=== PATIENT | male | born 1995 | race Caucasian/White ===

== ENCOUNTER → 2018-02-15 14:31 | Outpatient (CLI) | payer OTHER, SELFPAY ==
[2018-02-15 16:27] LABS: Microalbumin,Random Urine 16.9 mg/L (NO RANGE EST.); Microalbumin:Creatinine Ratio 7.4 mg/g CRE (<30 mg/g CRE); Protein:Creat Ratio 66 mg/g CRE (0-200)
[2018-02-15 16:44] LABS: Absolute Lymphocyte Count 1.97 X10^3/ul (0.83-4.51); Absolute Neutrophil Count 4.1 X10^3/uL (2.0-7.7); Albumin, Serum 4.1 g/dL (3.2-5.0); BUN 10 mg/dL (7-18); BUN/Creat Ratio 9.3 RATIO (10-20); Basophil# 0.02 X10^3/uL; Basophil% 0.3 % (0-1); Calcium,Total 9.3 mg/dL (8.5-10.1); Chloride 105 mmol/L (98-107); Creatinine, Serum 1.07 mg/dL (0.70-1.30); EST Glomerular Filtration Rate 89 mL/min (>60); Eosinophil# 0.04 X10^3/uL; Eosinophils% 0.6 % (0-5); Est Glom Filt Rate - Afr Amer 108 mL/min (>60); Glucose 102 mg/dL (74-106); Hematocrit 44.3 % (40-54); Hemoglobin 14.2 g/dl (13.0-16.5); Lymphocyte # 1.97 X10^3/ul (4.0); Lymphocyte % 29.1 % (19-41); Mean Corp Hgb Conc 32.1 g/gl (32-36); Mean Corpuscular Hgb 28.8 pg (27.0-32.0); Mean Corpuscular Volume 89.9 fL (80-94); Monocyte% 8.9 % (0-10); Neutrophil # 4.12 X10^3/uL (2.7-7.7); Phosphorus 3.2 mg/dL (2.5-4.9); Platelet Count 338 K/mm3 (150-450); Potassium 3.8 mmol/L (3.5-5.1); RBC Distribution Width CV 13.7 % (11.6-14.6); Red Blood Count 4.93 M/mm3 (4.6-6.2); Sodium Level 141 mmol/L (136-145); White Blood Count 6.8 K/mm3 (4.4-11.0)
[2018-02-15 16:52] LABS: POSITIVE COUNT NO; POSITIVE DIFFERENTIAL NO; POSITIVE MORPHOLOGY NO
== END ==
PROVIDERS: Family Provider Family Medicine; PCP Family Medicine; Visit Provider Pediatrics Pediatric Nephrology
DX: Q61.3 Polycystic kidney, unspecified (principal); Z13.0 Encounter for screening for diseases of the blood and blood-forming organs and certain disorders involving the immune mechanism
CPT/HCPCS: 36415; 80069; 82043; 82570; 84156; 85025

== ENCOUNTER → 2018-03-03 13:56 | Outpatient (CLI) | payer OTHER, SELFPAY ==
[2018-03-03 14:31] LABS: Absolute Neutrophil Count 3.9 X10^3/uL (2.0-7.7); Basophil# 0.04 X10^3/uL; Basophil% 0.6 % (0-1); Eosinophil# 0.05 X10^3/uL; Eosinophils% 0.8 % (0-5); Hematocrit 46.1 % (40-54); Lymphocyte % 28.6 % (19-41); Mean Corp Hgb Conc 32.5 g/gl (32-36); Mean Corpuscular Hgb 29.3 pg (27.0-32.0); Mean Platelet Vol. 9.8 fl (6.2-12.0); Monocyte# 0.49 X10^3/uL; Monocyte% 7.8 % (0-10); Neutrophil # 3.91 X10^3/uL (2.7-7.7); Platelet Count 261 K/mm3 (150-450); RBC Distribution Width CV 13.3 % (11.6-14.6); Red Blood Count 5.12 M/mm3 (4.6-6.2); White Blood Count 6.3 K/mm3 (4.4-11.0)
[2018-03-03 14:37] LABS: Protein, Urine (Random) < 6.0 mg/dL (<11.9); Protein:Creat Ratio 61 mg/g CRE (0-200)
[2018-03-03 14:49] LABS: POSITIVE COUNT NO; POSITIVE DIFFERENTIAL NO; POSITIVE MORPHOLOGY NO
[2018-03-03 14:59] LABS: ALB/GLOB Ratio 1.2 RATIO (0.9-2.4); AST(SGOT) 22 U/L (15-37); Alanine Aminotransfer ALT/SGPT 42 U/L (16-61); Albumin, Serum 4.1 g/dL (3.2-5.0); Alkaline Phosphatase 63 U/L (45-117); BUN 12 mg/dL (7-18); BUN/Creat Ratio 11.1 RATIO (10-20); Bilirubin, Direct 0.27 mg/dL (0.00-0.30); Calcium,Total 9.2 mg/dL (8.5-10.1); Chloride 106 mmol/L (98-107); Creatinine, Serum 1.08 mg/dL (0.70-1.30); EST Glomerular Filtration Rate 88 mL/min (>60); Est Glom Filt Rate - Afr Amer 107 mL/min (>60); Globulin 3.4 g/dL (2.2-4.2); Glucose 122 mg/dL (74-106); Phosphorus 3.6 mg/dL (2.5-4.9); Potassium 3.9 mmol/L (3.5-5.1); Protein, Total 7.5 g/dL (6.4-8.2); Sodium Level 141 mmol/L (136-145)
== END ==
PROVIDERS: Family Provider Family Medicine; PCP Family Medicine; Visit Provider Pediatrics Pediatric Nephrology
DX: Q61.3 Polycystic kidney, unspecified (principal); Z13.0 Encounter for screening for diseases of the blood and blood-forming organs and certain disorders involving the immune mechanism
CPT/HCPCS: 36415; 80069; 82247; 82248; 82570; 84075; 84156; 84450; 84460; 85025

== ENCOUNTER → 2018-03-09 16:07 | Outpatient (CLI) | payer OTHER, SELFPAY ==
[2018-03-09 17:11] LABS: Microalbumin,Random Urine 5.5 mg/L (NO RANGE EST.)
== END ==
PROVIDERS: Family Provider Family Medicine; PCP Family Medicine; Visit Provider Pediatrics Pediatric Nephrology
DX: Q61.3 Polycystic kidney, unspecified (principal); Z13.0 Encounter for screening for diseases of the blood and blood-forming organs and certain disorders involving the immune mechanism
CPT/HCPCS: 82043

== ENCOUNTER → 2018-04-28 16:15 | Outpatient (CLI) | payer OTHER, SELFPAY ==
[2018-04-28 17:39] LABS: AST(SGOT) 16 U/L (15-37); Alanine Aminotransfer ALT/SGPT 43 U/L (16-61); Albumin, Serum 3.9 g/dL (3.2-5.0); Alkaline Phosphatase 57 U/L (45-117); Globulin 3.3 g/dL (2.2-4.2); Protein, Total 7.2 g/dL (6.4-8.2)
== END ==
PROVIDERS: Family Provider Family Medicine; PCP Family Medicine; Referring Provider Pediatrics Pediatric Nephrology; Visit Provider Pediatrics Pediatric Nephrology
DX: Q61.3 Polycystic kidney, unspecified (principal)
CPT/HCPCS: 36415; 80076

== ENCOUNTER → 2018-05-13 16:24 | Outpatient (CLI) | payer OTHER, SELFPAY ==
[2018-05-13 17:46] LABS: AST(SGOT) 15 U/L (15-37); Alanine Aminotransfer ALT/SGPT 35 U/L (16-61); Albumin, Serum 4.2 g/dL (3.2-5.0); Alkaline Phosphatase 64 U/L (45-117); Bilirubin, Direct 0.25 mg/dL (0.00-0.30); Globulin 3.6 g/dL (2.2-4.2); Protein, Total 7.8 g/dL (6.4-8.2)
== END ==
PROVIDERS: Family Provider Family Medicine; PCP Family Medicine; Referring Provider Pediatrics Pediatric Nephrology; Visit Provider Pediatrics Pediatric Nephrology
DX: Q61.3 Polycystic kidney, unspecified (principal)
CPT/HCPCS: 36415; 80076

== ENCOUNTER → 2018-06-15 14:34 | Outpatient (CLI) | payer OTHER, SELFPAY ==
[2018-06-15 15:36] LABS: Absolute Lymphocyte Count 2.53 X10^3/ul (0.83-4.51); Absolute Neutrophil Count 3.8 X10^3/uL (2.0-7.7); Basophil# 0.02 X10^3/uL; Basophil% 0.3 % (0-1); Eosinophil# 0.12 X10^3/uL; Eosinophils% 1.6 % (0-5); Hematocrit 45.9 % (40-54); Hemoglobin 14.6 g/dl (13.0-16.5); Lymphocyte # 2.53 X10^3/ul (4.0); Lymphocyte % 33.8 % (19-41); Mean Corp Hgb Conc 31.8 g/gl (32-36); Mean Corpuscular Hgb 29.1 pg (27.0-32.0); Mean Corpuscular Volume 91.4 fL (80-94); Mean Platelet Vol. 9.9 fl (6.2-12.0); Monocyte# 1.06 X10^3/uL; Monocyte% 14.2 % (0-10); Neutrophil # 3.75 X10^3/uL (2.7-7.7); Platelet Count 266 K/mm3 (150-450); RBC Distribution Width CV 13.6 % (11.6-14.6); RBC Distribution Width SD 44.9 fl (35.1-43.9); Red Blood Count 5.02 M/mm3 (4.6-6.2); White Blood Count 7.5 K/mm3 (4.4-11.0)
[2018-06-15 15:43] LABS: POSITIVE COUNT NO; POSITIVE DIFFERENTIAL NO; POSITIVE MORPHOLOGY NO
[2018-06-15 15:51] LABS: Creatinine, Urine (random) < 13.00 mg/dL (NO RANGE EST.); Microalbumin,Random Urine < 5.0 mg/L (NO RANGE EST.); Protein, Urine (Random) < 6.0 mg/dL (<11.9)
[2018-06-15 16:08] LABS: BUN 11 mg/dL (7-18); BUN/Creat Ratio 10.5 RATIO (10-20); Calcium,Total 8.9 mg/dL (8.5-10.1); Chloride 105 mmol/L (98-107); Creatinine, Serum 1.05 mg/dL (0.70-1.30); EST Glomerular Filtration Rate 91 mL/min (>60); Est Glom Filt Rate - Afr Amer 110 mL/min (>60); Glucose 88 mg/dL (74-106); Phosphorus 3.9 mg/dL (2.5-4.9); Potassium 3.7 mmol/L (3.5-5.1); Sodium Level 141 mmol/L (136-145)
== END ==
PROVIDERS: Family Provider Family Medicine; PCP Family Medicine; Referring Provider Pediatrics Pediatric Nephrology; Visit Provider Pediatrics Pediatric Nephrology
DX: Q61.3 Polycystic kidney, unspecified (principal); Z13.0 Encounter for screening for diseases of the blood and blood-forming organs and certain disorders involving the immune mechanism
CPT/HCPCS: 36415; 80069; 82043; 82570; 84156; 85025

== ENCOUNTER → 2018-07-20 14:36 | Outpatient (CLI) | payer OTHER, SELFPAY ==
[2018-07-20 16:22] LABS: AST(SGOT) 19 U/L (15-37); Alanine Aminotransfer ALT/SGPT 38 U/L (16-61); Albumin, Serum 4.2 g/dL (3.2-5.0); Alkaline Phosphatase 53 U/L (45-117); Globulin 3.4 g/dL (2.2-4.2); Protein, Total 7.6 g/dL (6.4-8.2)
[2018-07-20 16:23] LABS: Bilirubin, Direct 0.18 mg/dL (0.00-0.30)
== END ==
PROVIDERS: Family Provider Family Medicine; PCP Family Medicine; Referring Provider Pediatrics Pediatric Nephrology; Visit Provider Pediatrics Pediatric Nephrology
DX: Q61.3 Polycystic kidney, unspecified (principal)
CPT/HCPCS: 36415; 80076

== ENCOUNTER → 2018-08-11 16:18 | Outpatient (CLI) | payer OTHER, SELFPAY ==
[2018-08-11 17:21] LABS: AST(SGOT) 19 U/L (15-37); Alanine Aminotransfer ALT/SGPT 42 U/L (16-61); Albumin, Serum 4.2 g/dL (3.2-5.0); Alkaline Phosphatase 57 U/L (45-117); Bilirubin, Direct 0.21 mg/dL (0.00-0.30); Globulin 3.4 g/dL (2.2-4.2); Protein, Total 7.6 g/dL (6.4-8.2)
--- OUTSIDE RECORDS SUMMARY | 2018-10-16 11:44 | XMS RPT_ITS ---
:1995 Author Organization OHIP Support Name Relationship Address Phone [facility] Unavailable [address] + [place] [address] SAM, YASH/CRICKET Unavailable [address] + [place] [address] [facility] Unavailable [address] + [place] [address] SAM, YASH/CRICKET Unavailable [address] + [place] [address] [facility] Unavailable [address] + [place] [address] SAM, YASH/CRICKET Unavailable [address] + [place] [address] [facility] Unavailable [address] + [place] [address] SAM, YASH/CRICKET Unavailable [address] + [place] [address] [facility] Unavailable [address] + [place] [address] SAM, YASH/CRICKET Unavailable [address] + [place] [address] [facility] Unavailable [address] + [place] [address] SAM, YASH/CRICKET Unavailable [address] + [place] [address] [facility] Unavailable [address] + [place] [address] SAM, YASH/CRICKET Unavailable [address] + [place] [address] OARD Unavailable [address] + [place] [address] YASH SAM/CRICKET Unavailable [address] + [place] [address] Care Team Providers Name Role Phone Zamzam, Anthony Attending Unavailable Zamzam, Anthony Referring Unavailable Lilliwaup, Jayme Primary Care Unavailable Zamzam, Anthony Attending Unavailable Zamzam, Anthony Referring Unavailable Lilliwaup, Jayme Primary Care Unavailable Zamzam, Anthony Attending Unavailable Zamzam, Anthony Referring Unavailable Evelio, Jayme Primary Care Unavailable Zamzma, Anthony Attending Unavailable Zamzam, Anthony Referring Unavailable Lilliwaup, Jayme Primary Care Unavailable Zamzam, Anthony Attending Unavailable Zamzam, Anthony Referring Unavailable Lilliwaup, Jayme Primary Care Unavailable Zamzam, Anthony Attending Unavailable Zamzam, Anthony Referring Unavailable Lilliwaup, Jayme Primary Care Unavailable Zamzam, Anthony Attending Unavailable Zamzam, Anthony Referring Unavailable Evelio, Jayme Primary Care Unavailable Zamzam, Anthony Attending Unavailable Evelio, Jayme Primary Care Unavailable Azmzam, Anthony Referring Unavailable PROBLEMS PROBLEMS DATE TYPE CONDITION / CODE ATTENDING STATUS SOURCE 08/11/2018 Unknown Q61.3 - David Wymanh Active [place] 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, [facility] unspecified / Repository Q61.3(ICD-10) 02/15/2018 Unknown Z13.0 - Encounter Leonardo Wymanpesh Active [place] for screening for Community diseases of the [facility] blood and Repository blood-forming organs and certain disorders involving the immune mechanism / Z13.0(ICD-10) PROCEDURES PROCEDURES No Procedure Records FoundRESULTS RESULTS LIVER PROFILE Collected: 08/11/2018 Status: F Source: [place] 4:22 PM [facility] HOSPITAL REPOSITORY TYPE CODE TESTS RESULT OUT OF RANGE REFERENCE UNITS LAB L501.1500 6.4-8.2 g/dL Normal T PROT 7.6 LAB L501.1800 3.2-5.0 g/dL Normal ALB 4.2 LAB L501.1950 2.2-4.2 g/dL Normal GLOB 3.4 LAB L501.4100 15-37 U/L Normal AST 19 LAB L501.4305 45-117 U/L Normal ALK P 57 LAB L501.4405 16-61 U/L Normal ALT 42 LAB L501.4600 0.20-1.00 mg/dL Normal T BILI 0.90 LAB L501.4700 0.00-0.30 mg/dL Normal D BILI 0.21 Performed By: #### L500.3400 #### [facility] [address] [place], [place], [id number] LIVER PROFILE Collected: 07/20/2018 Status: F Source: [place] 2:40 PM [facility] REPOSITORY TYPE CODE TESTS RESULT OUT OF RANGE REFERENCE UNITS LAB L501.1500 6.4-8.2 g/dL Normal T PROT 7.6 LAB L501.1800 3.2-5.0 g/dL Normal ALB 4.2 LAB L501.1950 2.2-4.2 g/dL Normal GLOB 3.4 LAB L501.4100 15-37 U/L Normal AST 19 LAB L501.4305 45-117 U/L Normal ALK P 53 LAB L501.4405 16-61 U/L Normal ALT 38 LAB L501.4600 0.20-1.00 mg/dL Normal T BILI 0.80 LAB L501.4700 0.00-0.30 mg/dL Normal D BILI 0.18 Performed By: #### L500.3400 #### [facility] [address] [place] [address], 418111 CBC W/DIFF, AUTOMATED Collected: 06/15/2018 Status: F Source: [place] 2:40 PM [facility] REPOSITORY TYPE CODE TESTS RESULT OUT OF RANGE REFERENCE UNITS LAB L100.1000 4.4-11.0 K/mm3 Normal WBC 7.5 LAB L100.1200 4.6-6.2 M/mm3 Normal RBC 5.02 LAB L100.1300 13.0-16.5 g/dl Normal HGB 14.6 LAB L100.1400 40-54 % Normal HCT 45.9 LAB L100.1500 80-94 fL Normal MCV 91.4 LAB L100.1600 27.0-32.0 pg Normal MCH 29.1 LAB L100.1700 32-36 g/gl Low MCHC 31.8 LAB L100.1810 11.6-14.6 % Normal RDW CV 13.6 LAB L100.1820 35.1-43.9 fl High RDW SD 44.9 LAB L100.1900 150-450 K/mm3 Normal PLT 266 LAB L100.2000 6.2-12.0 fl Normal MPV 9.9 LAB L100.2100 47-70 % Normal NEUT% 50.0 LAB L100.2200 19-41 % Normal LY% 33.8 LAB L100.2300 0-10 % High MONO% 14.2 LAB L100.2400 0-5 % Normal EO% 1.6 LAB L100.2500 0-1 % Normal BASO% 0.3 LAB L100.2550 0.0-0.9 % Normal IM GRAN % 0.100 Result Comment: IG% - Immature Granulocytes (promyelocytes, myelocytes and metamyelocytes) > 1% indicates that a LEFT SHIFT is Present. LAB L100.2620 2.0-7.7 X10 3/uL Normal Absolute Neut 3.8 LAB L100.2720 0.83-4.51 X10 3/ul Normal Absolute Lymph 2.53 Performed By: #### L100.0100 #### [facility] [address] [facility] [id number] PROTEIN+CREATININE Collected: Status: F Source: [place] RATIO,URINE 06/15/2018 2:40 PM [facility] REPOSITORY TYPE CODE TESTS RESULT OUT OF RANGE REFERENCE UNITS LAB L501.1200 NO RANGE EST. mg/dL < Normal UR 13.00 CREAT LAB L501.1930 <11.9 mg/dL < 6.0 Normal PROTEIN,UR. RAN. LAB L501.1940 0-200 mg/g CRE Test Normal not performed PROT:CRE RATIO Performed By: #### L501.0900, L502.0250 #### [facility] [address] [place], [place], [address] MICROALB:CREAT Collected: 06/15/2018 Status: F Source: [place] RATIO,RANDOM UR 2:40 PM [facility] REPOSITORY TYPE CODE TESTS RESULT OUT OF RANGE REFERENCE UNITS LAB L502.0500 NO RANGE EST. mg/L < 5.0 Normal MICROALBUMI N,UR LAB L502.0600 <30 mg/g CRE mg/g CRE Test Normal not performed MALB:CREAT Performed By: #### L501.0900, L502.0250 #### [facility] [address] [place], [address] RENAL PROFILE Collected: 06/15/2018 Status: F Source: [place] 2:40 PM [facility] REPOSITORY TYPE CODE TESTS RESULT OUT OF RANGE REFERENCE UNITS LAB L501.0100 74-106 mg/dL Normal GLU 88 Result Comment: Please note revised GLUCOSE reference range effective 2017. LAB L501.1000 7-18 mg/dL Normal BUN 11 LAB L501.1100 0.70-1.30 mg/dL Normal CREAT,SERUM 1.05 Result Comment: The validity of the calculated GFR AND GFRAA in patients over 70 years has not been determined. Clinical correlation is essential. LAB L501.1110 >60 mL/min Normal EST GFR 91 Result Comment: Non- GFR Calc LAB L501.1115 >60 mL/min Normal EST GFR - AA 110 Result Comment: GFR Calc LAB L501.1300 10-20 RATIO Normal BUN/CRE 10.5 LAB L501.1800 3.2-5.0 g/dL Normal ALB 4.0 LAB L501.2200 8.5-10.1 mg/dL CA Normal 8.9 LAB L501.2300 2.5-4.9 mg/dL Normal PHOS 3.9 LAB L501.5300 136-145 mmol/L NA Normal 141 LAB L501.5600 3.5-5.1 mmol/L K Normal 3.7 LAB L501.5900 98-107 mmol/L CL Normal 105 LAB L501.6100 21.0-32.0 mmol/L Normal CO2 30.0 Performed By: #### L500.3600 #### [facility] [address] [place], [place], [address] LIVER PROFILE Collected: 05/13/2018 Status: F Source: [place] 4:27 PM [facility] REPOSITORY TYPE CODE TESTS RESULT OUT OF RANGE REFERENCE UNITS LAB L501.1500 6.4-8.2 g/dL Normal T PROT 7.8 LAB L501.1800 3.2-5.0 g/dL Normal ALB 4.2 LAB L501.1950 2.2-4.2 g/dL Normal GLOB 3.6 LAB L501.4100 15-37 U/L Normal AST 15 LAB L501.4305 45-117 U/L Normal ALK P 64 LAB L501.4405 16-61 U/L Normal ALT 35 LAB L501.4600 0.20-1.00 mg/dL High T BILI 1.30 LAB L501.4700 0.00-0.30 mg/dL Normal D BILI 0.25 Performed By: #### L500.3400 #### [facility] [address] [place], [place], [id number] LIVER PROFILE Collected: 04/28/2018 Status: F Source: [place] 4:22 PM [facility] REPOSITORY TYPE CODE TESTS RESULT OUT OF RANGE REFERENCE UNITS LAB L501.1500 6.4-8.2 g/dL Normal T PROT 7.2 LAB L501.1800 3.2-5.0 g/dL Normal ALB 3.9 LAB L501.1950 2.2-4.2 g/dL Normal GLOB 3.3 LAB L501.4100 15-37 U/L Normal AST 16 LAB L501.4305 45-117 U/L Normal ALK P 57 LAB L501.4405 16-61 U/L Normal ALT 43 LAB L501.4600 0.20-1.00 mg/dL Normal T BILI 0.90 LAB L501.4700 0.00-0.30 mg/dL Normal D BILI 0.20 Performed By: #### L500.3400 #### [facility] [address] [place], [place], [id number] MICROALBUMIN,RANDOM URINE Collected: Status: F Source: [place] 03/09/2018 4:17 PM [facility] REPOSITORY TYPE CODE TESTS RESULT OUT OF RANGE REFERENCE UNITS LAB L502.0500 NO RANGE EST. mg/L Normal 5.5 MICROALBUMIN ,UR Performed By: #### L502.0500 #### [facility] [address] [place], [place], [id number] PROTEIN+CREATININE Collected: Status: F Source: [place] RATIO,URINE 03/03/2018 2:02 PM [facility] REPOSITORY TYPE CODE TESTS RESULT OUT OF RANGE REFERENCE UNITS LAB L501.1200 NO RANGE EST. mg/dL Normal UR CREAT 85.10 LAB L501.1930 <11.9 mg/dL Normal < 6.0 PROTEIN,UR.R AN. LAB L501.1940 0-200 mg/g CRE Normal PROT:CRE 61 RATIO Performed By: #### L501.0900 #### [facility] [address] [place], [address] CBC W/DIFF, AUTOMATED Collected: 03/03/2018 Status: F Source: [place] 2:02 PM [facility] REPOSITORY TYPE CODE TESTS RESULT OUT OF RANGE REFERENCE UNITS LAB L100.1000 4.4-11.0 K/mm3 Normal WBC 6.3 LAB L100.1200 4.6-6.2 M/mm3 Normal RBC 5.12 LAB L100.1300 13.0-16.5 g/dl Normal HGB 15.0 LAB L100.1400 40-54 % Normal HCT 46.1 LAB L100.1500 80-94 fL Normal MCV 90.0 LAB L100.1600 27.0-32.0 pg Normal MCH 29.3 LAB L100.1700 32-36 g/gl Normal MCHC 32.5 LAB L100.1810 11.6-14.6 % Normal RDW CV 13.3 LAB L100.1820 35.1-43.9 fl High RDW SD 44.0 LAB L100.1900 150-450 K/mm3 Normal PLT 261 LAB L100.2000 6.2-12.0 fl Normal MPV 9.8 LAB L100.2100 47-70 % Normal NEUT% 62.0 LAB L100.2200 19-41 % Normal LY% 28.6 LAB L100.2300 0-10 % Normal MONO% 7.8 LAB L100.2400 0-5 % Normal EO% 0.8 LAB L100.2500 0-1 % Normal BASO% 0.6 LAB L100.2550 0.0-0.9 % Normal IM GRAN % 0.200 Result Comment: IG% - Immature Granulocytes (promyelocytes, myelocytes and metamyelocytes) > 1% indicates that a LEFT SHIFT is Present. LAB L100.2620 2.0-7.7 X10 3/uL Normal Absolute Neut 3.9 LAB L100.2720 0.83-4.51 X10 3/ul Normal Absolute Lymph 1.80 Performed By: #### L100.0100 #### [facility] [address] [place], [address] PROTEIN, TOTAL Collected: 03/03/2018 Status: F Source: [place] 2:02 PM [facility] REPOSITORY TYPE CODE TESTS RESULT OUT OF RANGE REFERENCE UNITS LAB L501.1500 6.4-8.2 g/dL Normal T PROT 7.5 LAB L501.1950 2.2-4.2 g/dL Normal GLOB 3.4 LAB L501.2000 0.9-2.4 RATIO Normal A/G 1.2 Performed By: #### L001.0705, L500.3600, L501.4100, L501.4305, L501.4405, L501.4600, L501.4700 #### [facility] [address] [place], [address] RENAL PROFILE Collected: 03/03/2018 Status: F Source: [place] 2:02 [facility] REPOSITORY TYPE CODE TESTS RESULT OUT OF RANGE REFERENCE UNITS LAB L501.0100 74-106 mg/dL High GLU 122 Result Comment: Fasting Glucose result from 100 to 125 mg/dL suggests IMPAIRED HOMEOSTASIS per A.D.A. criteria. Please note revised GLUCOSE reference range effective 2017. LAB L501.1000 7-18 mg/dL Normal BUN 12 LAB L501.1100 0.70-1.30 mg/dL Normal CREAT,SERUM 1.08 Result Comment: The validity of the calculated GFR AND GFRAA in patients over 70 years has not been determined. Clinical correlation is essential. LAB L501.1110 >60 mL/min Normal EST GFR 88 Result Comment: Non- GFR Calc LAB L501.1115 >60 mL/min Normal EST GFR - AA 107 Result Comment: GFR Calc LAB L501.1300 10-20 RATIO Normal BUN/CRE 11.1 LAB L501.1800 3.2-5.0 g/dL Normal ALB 4.1 LAB L501.2200 8.5-10.1 mg/dL CA Normal 9.2 LAB L501.2300 2.5-4.9 mg/dL Normal PHOS 3.6 LAB L501.5300 136-145 mmol/L NA Normal 141 LAB L501.5600 3.5-5.1 mmol/L K Normal 3.9 LAB L501.5900 98-107 mmol/L CL Normal 106 LAB L501.6100 21.0-32.0 mmol/L Normal CO2 25.0 Performed By: #### L001.0705, L500.3600, L501.4100, L501.4305, L501.4405, L501.4600, L501.4700 #### [facility] [address] [facility] [place], [place], [address] AST(SGOT) Collected: 03/03/2018 Status: F Source: [place] 2:02 PM [facility] REPOSITORY TYPE CODE TESTS RESULT OUT OF RANGE REFERENCE UNITS LAB L501.4100 15-37 U/L Normal AST 22 Performed By: #### L001.0705, L500.3600, L501.4100, L501.4305, L501.4405, L501.4600, L501.4700 #### [facility] [address] [facility] [place], [place], [address] ALKALINE PHOSPHATASE Collected: 03/03/2018 Status: F Source: [place] 2:02 PM [facility] REPOSITORY TYPE CODE TESTS RESULT OUT OF RANGE REFERENCE UNITS LAB L501.4305 45-117 U/L Normal ALK P 63 Performed By: #### L001.0705, L500.3600, L501.4100, L501.4305, L501.4405, L501.4600, L501.4700 #### [facility] [address] [facility] [place], [place], [address] ALANINE AMINOTRANSFERAS Collected: 03/03/2018 Status: F Source: [place] (SGPT) 2:02 PM [facility] REPOSITORY TYPE CODE TESTS RESULT OUT OF RANGE REFERENCE UNITS LAB L501.4405 16-61 U/L Normal ALT 42 Performed By: #### L001.0705, L500.3600, L501.4100, L501.4305, L501.4405, L501.4600, L501.4700 #### [facility] [address] [place], [place], [address] TOTAL BILIRUBIN Collected: 03/03/2018 Status: F Source: [place] 2:02 PM [facility] REPOSITORY TYPE CODE TESTS RESULT OUT OF RANGE REFERENCE UNITS LAB L501.4600 0.20-1.00 mg/dL High T BILI 1.30 Performed By: #### L001.0705, L500.3600, L501.4100, L501.4305, L501.4405, L501.4600, L501.4700 #### [facility] [address] [place], [place], [address] BILIRUBIN, DIRECT Collected: 03/03/2018 Status: F Source: [place] 2:02 PM [facility] REPOSITORY TYPE CODE TESTS RESULT OUT OF RANGE REFERENCE UNITS LAB L501.4700 0.00-0.30 mg/dL Normal D BILI 0.27 Performed By: #### L001.0705, L500.3600, L501.4100, L501.4305, L501.4405, L501.4600, L501.4700 #### [facility] [address] [place], [place], [address] PROTEIN+CREATININE Collected: Status: F Source: [place] RATIO,URINE 02/15/2018 2:43 PM [facility] REPOSITORY TYPE CODE TESTS RESULT OUT OF RANGE REFERENCE UNITS LAB L501.1200 NO RANGE EST. mg/dL Normal UR CREAT 229.00 LAB L501.1930 <11.9 mg/dL High 15.0 PROTEIN,UR.R AN. LAB L501.1940 0-200 mg/g CRE Normal PROT:CRE 66 RATIO Performed By: #### L501.0900, L502.0250 #### [facility] [address] [place], [place], [address] MICROALB:CREAT Collected: 02/15/2018 Status: F Source: [place] RATIO,RANDOM UR 2:43 PM [facility] REPOSITORY TYPE CODE TESTS RESULT OUT OF RANGE REFERENCE UNITS LAB L502.0500 NO RANGE EST. mg/L Normal 16.9 MICROALBUMIN ,UR LAB L502.0600 <30 mg/g CRE mg/g CRE Normal 7.4 MALB:CREAT Performed By: #### L501.0900, L502.0250 #### [facility] [address] [place], [address] RENAL PROFILE Collected: 02/15/2018 Status: F Source: [place] 2:43 PM [facility] REPOSITORY TYPE CODE TESTS RESULT OUT OF RANGE REFERENCE UNITS LAB L501.0100 74-106 mg/dL Normal GLU 102 Result Comment: Fasting Glucose result from 100 to 125 mg/dL suggests IMPAIRED HOMEOSTASIS per A.D.A. criteria. Please note revised GLUCOSE reference range effective 2017. LAB L501.1000 7-18 mg/dL Normal BUN 10 LAB L501.1100 0.70-1.30 mg/dL Normal CREAT,SERUM 1.07 Result Comment: The validity of the calculated GFR AND GFRAA in patients over 70 years has not been determined. Clinical correlation is essential. LAB L501.1110 >60 mL/min Normal EST GFR 89 Result Comment: Non- GFR Calc LAB L501.1115 >60 mL/min Normal EST GFR - AA 108 Result Comment: GFR Calc LAB L501.1300 10-20 RATIO Low BUN/CRE 9.3 LAB L501.1800 3.2-5.0 g/dL Normal ALB 4.1 LAB L501.2200 8.5-10.1 mg/dL Normal CA 9.3 LAB L501.2300 2.5-4.9 mg/dL Normal PHOS 3.2 LAB L501.5300 136-145 mmol/L Normal NA 141 LAB L501.5600 3.5-5.1 mmol/L Normal K 3.8 LAB L501.5900 98-107 mmol/L Normal CL 105 LAB L501.6100 21.0-32.0 mmol/L Normal CO2 29.0 Performed By: #### L500.3600 #### [facility] [address] [place], [address] CBC W/DIFF, AUTOMATED Collected: 02/15/2018 Status: F Source: [place] 2:43 PM [facility] REPOSITORY TYPE CODE TESTS RESULT OUT OF RANGE REFERENCE UNITS LAB L100.1000 4.4-11.0 K/mm3 Normal WBC 6.8 LAB L100.1200 4.6-6.2 M/mm3 Normal RBC 4.93 LAB L100.1300 13.0-16.5 g/dl Normal HGB 14.2 LAB L100.1400 40-54 % Normal HCT 44.3 LAB L100.1500 80-94 fL Normal MCV 89.9 LAB L100.1600 27.0-32.0 pg Normal MCH 28.8 LAB L100.1700 32-36 g/gl Normal MCHC 32.1 LAB L100.1810 11.6-14.6 % Normal RDW CV 13.7 LAB L100.1820 35.1-43.9 fl High RDW SD 45.0 LAB L100.1900 150-450 K/mm3 Normal PLT 338 LAB L100.2000 6.2-12.0 fl Normal MPV 10.0 LAB L100.2100 47-70 % Normal NEUT% 61.0 LAB L100.2200 19-41 % Normal LY% 29.1 LAB L100.2300 0-10 % Normal MONO% 8.9 LAB L100.2400 0-5 % Normal EO% 0.6 LAB L100.2500 0-1 % Normal BASO% 0.3 LAB L100.2550 0.0-0.9 % Normal IM GRAN % 0.100 Result Comment: IG% - Immature Granulocytes (promyelocytes, myelocytes and metamyelocytes) > 1% indicates that a LEFT SHIFT is Present. LAB L100.2620 2.0-7.7 X10 3/uL Normal Absolute Neut 4.1 LAB L100.2720 0.83-4.51 X10 3/ul Normal Absolute Lymph 1.97 Performed By: #### L100.0100 #### [facility] [address] [place], [place], [address] ALLERGIES ALLERGIES No Allergies Records FoundENCOUNTERS ENCOUNTERS ADMIT/DISCHARGE ACCOUNT ADMITTING ENCOUNTER LOCATION SOURCE NUMBER CLASS 08/11/2018 [id number] Ambulatory [place] 2 [facility] ing:LAB Repository 07/20/2018 [id number] Ambulatory [place] 0 [facility] ing:LAB Repository 06/15/2018 [id number] Ambulatory [place] 8 [facility] ing:LAB.FUTUR Repository E 05/13/2018 [id number] Ambulatory [place] 6 [facility] ing:LAB Repository 04/28/2018 [id number] Ambulatory [place] 3 [facility] ing:LAB Repository 03/09/2018 [id number] Ambulatory [place] 2 [facility] ing:LAB Repository 03/03/2018 [id number] Ambulatory [place] 3 [facility] ing:LAB Repository 02/15/2018 [id number] Ambulatory [place] 3 [facility] ing:LAB Repository PAYERS PAYERS ENCOUNTER GUARANTOR PAYER SUBSCRIBER SOURCE 08/11/2018 PALMA Bridges Primary CRICKET J [place] [id number] Insurance:MEDICAL PHILLIPSDOB: [facility] [id number] Number: Repository [id number]: 330 [id number] [phone] () Date:4349-58-52HF [address] [address]HB: 08/11/2018 Secondary NOT GIVENUNK [place] Insurance:SELF PAY [facility] Number: Effective Repository Date:2018-08-11 07/20/2018 PALMA Bridges Primary CRICKET J [place] [id number] Insurance:MEDICAL PHILLIPSDOB: [facility] [id number] Number: Repository [id number]: 330 [id number] [phone] () Date:[id number] [address]JR: 07/20/2018 Secondary NOT GIVENUNK [place] Insurance:SELF PAY [facility] Number: Effective Repository Date:2018-07-20 06/15/2018 PALMA K Primary CRICKET J [place] [id number] Insurance:MEDICAL PHILLIPSDOB: [facility] [id number] Number: Repository [id number]: [phone] [id number] [phone] (HP) Date:3338-23-39TD [address] [address]AW: 06/15/2018 Secondary NOT GIVENUNK [place] Insurance:SELF PAY [facility] Number: Effective Repository Date:2018-06-15 05/13/2018 Palma K Primary CRICKET J [place] [id number] Insurance:MEDICAL PHILLIPSDOB: [facility] [id number] Number: Repository [id number]: [phone]) [id number] [phone] (HP) Date:3502-68-09RZ [address] [address]MN: 05/13/2018 Secondary NOT GIVENUNK [place] Insurance:SELF PAY [facility] Number: Effective Repository Date:2018-05-13 04/28/2018 Palma K Primary CRICKET J [place] [id number] Insurance:MEDICAL PHILLIPSDOB: [facility] [id number] Number: Repository [address]Naf: 330 [id number] [phone] (HP) Date:9363-69-57WC [address] [address]OQ: 04/28/2018 Secondary NOT GIVENUNK [place] Insurance:SELF PAY [facility] Number: Effective Repository Date:2018-04-28 03/09/2018 Palma K Primary CRICKET J [place] [id number] Insurance:MEDICAL PHILLIPSDOB: [facility] [id number] Number: Repository [id number]: [phone] [id number] [phone] (HP) Date:0735-82-75LF [address] [place] [address]FJ: 03/09/2018 Secondary NOT GIVENUNK [place] Insurance:SELF PAY [facility] Number: Effective Repository Date:2018-03-09 03/03/2018 Palma K Primary CRICKET J [place] [id number] Insurance:MEDICAL PHILLIPSDOB: [facility] [id number] Number: Repository [id number]: 330 [id number] [phone] (HP) Date:5347-45-51UM [address] [place] [address]OR: 03/03/2018 Secondary NOT GIVENUNK [place] Insurance:SELF PAY [facility] Number: Effective Repository Date:2018-03-03 02/15/2018 Palma K Primary CRICKET J [place] [id number] Insurance:MEDICAL PHILLIPSDOB: [facility] [id number] Number: Repository [id number]: [phone] [id number] [phone] (HP) Date:2210-37-73BW [address] [address]GW: 02/15/2018 Secondary NOT GIVENUNK [place] Insurance:SELF PAY [facility] Number: Effective Repository Date:2018-02-15
== END ==
PROVIDERS: Family Provider Family Medicine; PCP Family Medicine; Referring Provider Pediatrics Pediatric Nephrology; Visit Provider Pediatrics Pediatric Nephrology
DX: Q61.3 Polycystic kidney, unspecified (principal)
CPT/HCPCS: 36415; 80076

== ENCOUNTER → 2018-09-16 15:14 | Outpatient (CLI) | payer OTHER, SELFPAY ==
[2018-09-16 16:09] LABS: Absolute Neutrophil Count 3.8 X10^3/uL (2.0-7.7); Basophil# 0.03 X10^3/uL; Basophil% 0.4 % (0-1); Eosinophil# 0.09 X10^3/uL; Eosinophils% 1.2 % (0-5); Hematocrit 44.3 % (40-54); Hemoglobin 14.3 g/dl (13.0-16.5); Lymphocyte % 34.4 % (19-41); Mean Corp Hgb Conc 32.3 g/gl (32-36); Mean Corpuscular Hgb 29.4 pg (27.0-32.0); Mean Platelet Vol. 9.7 fl (6.2-12.0); Monocyte# 0.88 X10^3/uL; Monocyte% 12.1 % (0-10); Neutrophil # 3.76 X10^3/uL (2.7-7.7); Neutrophil % 51.8 % (47-70); Platelet Count 264 K/mm3 (150-450); RBC Distribution Width SD 42.7 fl (35.1-43.9); Red Blood Count 4.87 M/mm3 (4.6-6.2); White Blood Count 7.3 K/mm3 (4.4-11.0)
[2018-09-16 16:10] LABS: POSITIVE COUNT NO; POSITIVE DIFFERENTIAL NO; POSITIVE MORPHOLOGY NO
[2018-09-16 16:24] LABS: Microalbumin,Random Urine 5.5 mg/L (NO RANGE EST.); Microalbumin:Creatinine Ratio 15.8 mg/g CRE (<30 mg/g CRE); Protein, Urine (Random) < 6.0 mg/dL (<11.9)
[2018-09-16 16:37] LABS: Albumin, Serum 3.9 g/dL (3.2-5.0); BUN 12 mg/dL (7-18); BUN/Creat Ratio 9.9 RATIO (10-20); Calcium,Total 8.4 mg/dL (8.5-10.1); Chloride 108 mmol/L (98-107); Creatinine, Serum 1.21 mg/dL (0.70-1.30); EST Glomerular Filtration Rate 77 mL/min (>60); Est Glom Filt Rate - Afr Amer 94 mL/min (>60); Glucose 89 mg/dL (74-106); Potassium 3.7 mmol/L (3.5-5.1); Sodium Level 144 mmol/L (136-145)
== END ==
PROVIDERS: Family Provider Family Medicine; PCP Family Medicine; Referring Provider Pediatrics Pediatric Nephrology; Visit Provider Pediatrics Pediatric Nephrology
DX: Q61.3 Polycystic kidney, unspecified (principal); Z13.0 Encounter for screening for diseases of the blood and blood-forming organs and certain disorders involving the immune mechanism
CPT/HCPCS: 36415; 80069; 82043; 82570; 84156; 85025

== ENCOUNTER → 2018-09-20 14:08 | Outpatient (CLI) | payer OTHER, SELFPAY ==
[2018-09-20 16:51] LABS: AST(SGOT) 24 U/L (15-37); Alanine Aminotransfer ALT/SGPT 49 U/L (16-61); Albumin, Serum 4.4 g/dL (3.2-5.0); Alkaline Phosphatase 63 U/L (45-117); Bilirubin, Direct 0.18 mg/dL (0.00-0.30); Globulin 3.7 g/dL (2.2-4.2); Protein, Total 8.1 g/dL (6.4-8.2)
== END ==
PROVIDERS: Family Provider Family Medicine; PCP Family Medicine; Referring Provider Pediatrics Pediatric Nephrology; Visit Provider Pediatrics Pediatric Nephrology
DX: Q61.3 Polycystic kidney, unspecified (principal)
CPT/HCPCS: 36415; 80076

== ENCOUNTER → 2018-10-20 13:36 | Outpatient (CLI) | payer OTHER, SELFPAY ==
[2018-10-20 15:16] LABS: AST(SGOT) 23 U/L (15-37); Alanine Aminotransfer ALT/SGPT 47 U/L (16-61); Albumin, Serum 4.4 g/dL (3.2-5.0); Alkaline Phosphatase 56 U/L (45-117); Bilirubin, Direct 0.27 mg/dL (0.00-0.30); Globulin 3.4 g/dL (2.2-4.2); Protein, Total 7.8 g/dL (6.4-8.2)
== END ==
PROVIDERS: Family Provider Family Medicine; PCP Family Medicine; Referring Provider Pediatrics Pediatric Nephrology; Visit Provider Pediatrics Pediatric Nephrology
DX: Q61.3 Polycystic kidney, unspecified (principal)
CPT/HCPCS: 36415; 80076

== ENCOUNTER → 2018-11-23 13:34 | Outpatient (CLI) | payer OTHER, SELFPAY ==
[2018-11-23 16:39] LABS: AST(SGOT) 18 U/L (15-37); Alanine Aminotransfer ALT/SGPT 40 U/L (16-61); Albumin, Serum 4.2 g/dL (3.2-5.0); Alkaline Phosphatase 57 U/L (45-117); Bilirubin, Direct 0.25 mg/dL (0.00-0.30); Globulin 3.4 g/dL (2.2-4.2); Protein, Total 7.6 g/dL (6.4-8.2)
== END ==
PROVIDERS: Family Provider Family Medicine; PCP Family Medicine
DX: Q61.3 Polycystic kidney, unspecified (principal)
CPT/HCPCS: 36415; 80076

== ENCOUNTER → 2018-12-06 16:09 | Outpatient (CLI) | payer OTHER, SELFPAY ==
[2018-12-06 17:41] LABS: AST(SGOT) 15 U/L (15-37); Alanine Aminotransfer ALT/SGPT 40 U/L (16-61); Albumin, Serum 4.2 g/dL (3.2-5.0); Alkaline Phosphatase 56 U/L (45-117); Bilirubin, Direct 0.28 mg/dL (0.00-0.30); Globulin 3.2 g/dL (2.2-4.2); Protein, Total 7.4 g/dL (6.4-8.2)
== END ==
PROVIDERS: Family Provider Family Medicine; PCP Family Medicine; Referring Provider Pediatrics Pediatric Nephrology; Visit Provider Pediatrics Pediatric Nephrology
DX: Q61.3 Polycystic kidney, unspecified (principal)
CPT/HCPCS: 36415; 80076

== ENCOUNTER → 2019-01-05 12:37 | Outpatient (CLI) | payer OTHER, SELFPAY ==
[2019-01-05 13:32] LABS: Absolute Lymphocyte Count 2.01 X10^3/ul (0.83-4.51); Absolute Neutrophil Count 2.9 X10^3/uL (2.0-7.7); Basophil# 0.02 X10^3/uL; Basophil% 0.4 % (0-1); Eosinophil# 0.08 X10^3/uL; Eosinophils% 1.4 % (0-5); Hematocrit 45.5 % (40-54); Hemoglobin 15.1 g/dl (13.0-16.5); Lymphocyte # 2.01 X10^3/ul (4.0); Lymphocyte % 35.6 % (19-41); Mean Corp Hgb Conc 33.2 g/gl (32-36); Mean Corpuscular Hgb 29.5 pg (27.0-32.0); Mean Platelet Vol. 9.6 fl (6.2-12.0); Monocyte# 0.59 X10^3/uL; Monocyte% 10.5 % (0-10); Neutrophil # 2.94 X10^3/uL (2.7-7.7); Neutrophil % 52.1 % (47-70); Platelet Count 287 K/mm3 (150-450); RBC Distribution Width CV 12.9 % (11.6-14.6); RBC Distribution Width SD 41.8 fl (35.1-43.9); Red Blood Count 5.11 M/mm3 (4.6-6.2); White Blood Count 5.6 K/mm3 (4.4-11.0)
[2019-01-05 13:34] LABS: POSITIVE COUNT NO; POSITIVE DIFFERENTIAL NO; POSITIVE MORPHOLOGY NO
[2019-01-05 13:49] LABS: Microalbumin,Random Urine 10.7 mg/L (NO RANGE EST.); Microalbumin:Creatinine Ratio 7.5 mg/g CRE (<30 mg/g CRE); Protein, Urine (Random) 10.9 mg/dL (<11.9)
[2019-01-05 13:57] LABS: Albumin, Serum 3.9 g/dL (3.2-5.0); BUN 14 mg/dL (7-18); BUN/Creat Ratio 13.2 RATIO (10-20); Calcium,Total 9.2 mg/dL (8.5-10.1); Chloride 106 mmol/L (98-107); Creatinine, Serum 1.06 mg/dL (0.70-1.30); EST Glomerular Filtration Rate 90 mL/min (>60); Est Glom Filt Rate - Afr Amer 109 mL/min (>60); Glucose 89 mg/dL (74-106); Sodium Level 142 mmol/L (136-145)
== END ==
PROVIDERS: Family Provider Family Medicine; PCP Family Medicine; Referring Provider Pediatrics Pediatric Nephrology; Visit Provider Pediatrics Pediatric Nephrology
DX: Q61.3 Polycystic kidney, unspecified (principal); Z13.0 Encounter for screening for diseases of the blood and blood-forming organs and certain disorders involving the immune mechanism
CPT/HCPCS: 36415; 80069; 82043; 82570; 84156; 85025

== ENCOUNTER 2019-01-23 18:39 | Emergency (ER) | payer MEDICAID, SELFPAY ==
[2019-01-23 18:40] VITALS: BP 127/75; PULSE 75; RESP 15; TEMP 36.8; O2SAT 96; BMI 31.5
--- NOTE | 2019-01-23 18:46 | RAD_ITS ---
STUDY: X-RAY - RIGHT SHOULDER REASON FOR EXAM: Male, 24 years old. Pain TECHNIQUE: 4 view(s) of the shoulder. COMPARISON: None. FINDINGS: Normal glenohumeral articulation. Normal acromioclavicular joint. Normal acromion. Normal humeral head and visualized proximal humerus. The soft tissue structures are unremarkable. Normal visualized pulmonary apex. RAD/Shoulder min 2 Views IMPRESSION: Normal x-ray examination of the shoulder. Electronically Signed: Chris Whelan MD at 19:14 EDT , Service support ,
--- NOTE | 2019-01-23 20:09 | ED.VISSUMM ---
- ER Visit Summary Date of Service: 01/23/19 Chief Complaint: Right shoulder pain History of Present Illness: The patient is a 24 M who presents with injury to his right shoulder that occurred approximately 2 hours prior to arrival. Patient states he tripped and landed on the anterior and lateral aspect of his right shoulder. Patient is concerned over possible clavicle or shoulder fracture. Patient states the pain is worse with movement. Patient states the pain is improved with rest. Patient states the pain is constant dull ache but is sharp with movement. Patient denies any paresthesias or weakness. Physical Examination: Vital signs are stable. Patient is afebrile. Patient is in no acute distress. Musculoskeletal exam reveals tenderness over the anterior aspect of the right shoulder and distal clavicle. Range of motion was slightly limited in all motions of the right shoulder secondary to pain. There is no laxity appreciated. There is no deformity noted. There is no bony crepitance or step-off. Radial pulses are equal bilaterally. Sensation was intact to light touch in the radial, median, ulnar, and axillary areas. Strength is 5/5 in the radial, median, and ulnar areas. Test Results: X-rays of the right shoulder were obtained. There is no acute fracture. These were interpreted by the radiologist and reviewed by myself. Emergency Department Course and Treatment: Patient currently has his arm in a sling. Patient was instructed to use ice to the area. Patient was instructed to take Tylenol or ibuprofen as needed for pain. Patient was instructed to do range of motion exercises to prevent frozen shoulder. Patient was instructed to follow-up with his primary care physician in 5 to 7 days. Patient understood and was agreeable with the plan. All questions were answered. Disposition: Discharge home Impression: Right shoulder contusion This note was generated with [employer] dictation software. It may contain incorrect words, spelling, and punctuation that were not noted in review of the chart prior to signing ED Disposition - Plan for ED Patient: Disposition: Home or Assisted Living Diagnosis: Contusion of right shoulder, initial encounter Instructions: CONTUSION, Upper Extremity Referrals: Jayme Fraser DO [Primary Care Provider] - 5-7 Days
[2019-01-23 20:26] VITALS: BP 114/71; PULSE 68; RESP 18; O2SAT 99
== END 2019-01-23 20:27 | disposition home or self-care (01) ==
LOC: ED 20:16
PROVIDERS: Emergency Provider Emergency Medicine; Family Provider Family Medicine; PCP Family Medicine
DX: S40.011A Contusion of right shoulder, initial encounter (principal); R11.0 Nausea; W01.0XXA Fall on same level from slipping, tripping and stumbling without subsequent striking against object, initial encounter; Y93.9 Activity, unspecified; Y92.9 Unspecified place or not applicable; Q61.3 Polycystic kidney, unspecified
CPT/HCPCS: 73030; 99282

== ENCOUNTER → 2019-02-17 09:52 | Outpatient (CLI) | payer MEDICAID, SELFPAY ==
[2019-02-01 08:58] VITALS: BMI 31.5
--- NOTE | 2019-02-17 09:57 | RAD_ITS ---
CLINICAL HISTORY: Male, 24 years old. Right shoulder pain and decreased range of motion PROCEDURE: ARTHROGRAM - FLUOROSCOPICALLY GUIDED RIGHT GLENOHUMERAL JOINT INJECTION RADIATION DOSAGE (If Supplied By Facility): CTDIvol = ( ) mGy, DLP = ( ) mGycm CONSENT: Informed consent obtained SEDATION: Local sedation with 2% Xylocaine FLUOROSCOPY TIME (if supplied): (0:29) minutes/seconds Injection Information: 2 to 3 mL of Isovue-300 to confirm needle placement, then 20 mL of gadolinium enhanced normal saline at a concentration of 0.1 mL gadolinium per 20 mL saline Number of images obtained: 1 TECHNIQUE: (All elements of maximal sterile barrier technique followed, including US elements as applicable) After informed consent was obtained, the patient was placed in the supine position on the fluoroscopic table, and an appropriate site for right glenohumeral injection was determined. The area was prepped and draped in a sterile manner, and 2% Xylocaine was used as local anesthetic. Under fluoroscopic guidance, a 22-gauge spinal needle was advanced into the right glenohumeral joint where needle confirmation was determined with Isovue contrast, and then 20 mL of gadolinium enhanced normal saline was advanced into the glenohumeral joint space. Patient tolerated the procedure well with no immediate complications, and was sent to MRI for additional imaging RAD/Arthrogram Shoulder w/ MRI IMPRESSION: Successful fluoroscopically guided right glenohumeral joint injection Electronically Signed: Speedy Rivera MD at 11:13 EDT , Service support ,
--- NOTE | 2019-02-17 11:30 | MRI_ITS ---
STUDY: MR RIGHT SHOULDER ARTHROGRAPHY REASON FOR EXAM: Pain, right shoulder injury 5 weeks ago. TECHNIQUE: Standardized fat and water weighted pulse sequences were obtained in all 3 orthogonal planes after intra-articular instillation of dilute gadolinium. COMPARISON: Radiographs 01/23/2019. FINDINGS: Normal supraspinatus tendon. Normal infraspinatus tendon. Normal subscapularis tendon. Normal teres minor tendon. Normal supraspinatus muscle. Normal infraspinatus muscle. Normal subscapularis muscle. Normal teres minor muscle. Normal glenohumeral articulation. There is a small intra-articular body or focus of synovitis in the subscapularis recess (T2 sagittal image 6; T2 coronal image 16) measuring 0.5 cm in AP dimension. Normal humeral head and visualized proximal humerus. Normal biceps labral complex. Normal intracapsular long biceps tendon. Normal labrum. Normal capsulo- ligamentous complex. Normal rotator interval. There is a sprain of the acromioclavicular joint capsule (T2 sagittal image 8; T2 coronal images 14, 15). There is a mild sprain of the coracoclavicular ligaments (T2 sagittal image 7). There is a Type II morphology (curved), with a neutral orientation. There is no subacromial-subdeltoid bursal fluid. Normal visualized coracohumeral and coracoacromial ligaments. There is mild iatrogenic edema in the proximal anterior deltoid muscle. There is a low-grade strain of the distal trapezius muscle (T2 coronal images 16, 17). MRI/Upper Ext Jt Only W/Contrast IMPRESSION: Sprain of the acromioclavicular joint capsule and mild sprain of the coracoclavicular ligaments. Low-grade strain of the distal trapezius muscle. Small intra-articular body or focus of synovitis in the subscapularis recess. No demonstrated labral tear or rotator cuff tear. Electronically Signed: Jordy Alves MD at 14:07 EDT Tel , Service support ,
== END ==
PROVIDERS: Family Provider Family Medicine; PCP Family Medicine; Referring Provider Orthopaedic Surgery; Visit Provider Orthopaedic Surgery
DX: S43.51XA Sprain of right acromioclavicular joint, initial encounter (principal); X58.XXXA Exposure to other specified factors, initial encounter; Y93.9 Activity, unspecified; Y92.9 Unspecified place or not applicable; Y99.9 Unspecified external cause status
CPT/HCPCS: 23350; 73222; 77002; A9575; Q9967

== ENCOUNTER → 2019-02-28 15:52 | Outpatient (CLI) | payer MEDICAID, SELFPAY ==
[2019-02-27 14:45] VITALS: BMI 31.5
[2019-02-28 17:37] LABS: AST(SGOT) 25 U/L (15-37); Alanine Aminotransfer ALT/SGPT 62 U/L (16-61); Alkaline Phosphatase 53 U/L (45-117); Bilirubin, Direct 0.14 mg/dL (0.00-0.30); Globulin 3.4 g/dL (2.2-4.2); Protein, Total 7.4 g/dL (6.4-8.2)
== END ==
PROVIDERS: Family Provider Family Medicine; PCP Family Medicine; Referring Provider Pediatrics Pediatric Nephrology; Visit Provider Pediatrics Pediatric Nephrology
DX: Q61.3 Polycystic kidney, unspecified (principal)
CPT/HCPCS: 36415; 80076

== ENCOUNTER → 2019-03-09 15:33 | Outpatient (CLI) | payer MEDICAID, SELFPAY ==
[2019-02-27 14:45] VITALS: BMI 31.5
[2019-03-09 16:52] LABS: BUN 15 mg/dL (7-18); BUN/Creat Ratio 13.8 RATIO (10-20); Chloride 108 mmol/L (98-107); Creatinine, Serum 1.09 mg/dL (0.70-1.30); EST Glomerular Filtration Rate 87 mL/min (>60); Est Glom Filt Rate - Afr Amer 105 mL/min (>60); Glucose 76 mg/dL (74-106); Phosphorus 3.6 mg/dL (2.5-4.9); Potassium 3.9 mmol/L (3.5-5.1); Sodium Level 141 mmol/L (136-145)
[2019-03-09 16:54] LABS: Absolute Lymphocyte Count 2.37 X10^3/uL (0.83-4.51); Absolute Neutrophil Count 3.2 X10^3/uL (2.0-7.7); Basophil# 0.05 X10^3/uL; Basophil% 0.8 % (0-1); Eosinophil# 0.13 X10^3/uL; Hematocrit 46.4 % (40-54); Hemoglobin 14.9 g/dL (13.0-16.5); Lymphocyte # 2.37 X10^3/ul (4.0); Lymphocyte % 36.7 % (19-41); Mean Corp Hgb Conc 32.1 g/dL (32-36); Mean Corpuscular Hgb 29.3 pg (27.0-32.0); Mean Corpuscular Volume 91.2 fL (80-94); Mean Platelet Vol. 9.7 fl (6.2-12.0); Monocyte# 0.69 X10^3/uL; Monocyte% 10.7 % (0-10); NRBC Flagged by Analyzer 0 % (0-5); Neutrophil # 3.18 X10^3/uL (2.7-7.7); Neutrophil % 49.3 % (47-70); Platelet Count 310 K/mm3 (150-450); RBC Distribution Width CV 12.5 % (11.6-14.6); Red Blood Count 5.09 M/mm3 (4.6-6.2); White Blood Count 6.5 K/mm3 (4.4-11.0)
[2019-03-09 17:08] LABS: Microalbumin,Random Urine 29.9 mg/L (NO RANGE EST.); Microalbumin:Creatinine Ratio 14.2 mg/g CRE (<30 mg/g CRE); Protein, Urine (Random) 18.5 mg/dL (<11.9); Protein:Creat Ratio 88 mg/g CRE (0-200)
[2019-03-10 07:05] LABS: ALB/GLOB Ratio 1.2 RATIO (0.9-2.4); AST(SGOT) 29 U/L (15-37); Alanine Aminotransfer ALT/SGPT 57 U/L (16-61); Alkaline Phosphatase 56 U/L (45-117); Bilirubin, Direct 0.11 mg/dL (0.00-0.30); Globulin 3.3 g/dL (2.2-4.2); Protein, Total 7.3 g/dL (6.4-8.2)
== END ==
PROVIDERS: Family Provider Family Medicine; PCP Family Medicine; Referring Provider Pediatrics Pediatric Nephrology; Visit Provider Pediatrics Pediatric Nephrology
DX: Z13.0 Encounter for screening for diseases of the blood and blood-forming organs and certain disorders involving the immune mechanism (principal); Q61.3 Polycystic kidney, unspecified
CPT/HCPCS: 36415; 80069; 82043; 82247; 82248; 82570; 84075; 84156; 84450; 84460; 85025

== ENCOUNTER → 2019-04-07 16:36 | Outpatient (CLI) | payer MEDICAID, SELFPAY ==
[2019-02-27 14:45] VITALS: BMI 31.5
[2019-04-07 17:35] LABS: AST(SGOT) 33 U/L (15-37); Alanine Aminotransfer ALT/SGPT 40 U/L (16-61); Albumin, Serum 4.2 g/dL (3.2-5.0); Alkaline Phosphatase 59 U/L (45-117); Bilirubin, Direct 0.28 mg/dL (0.00-0.30); Globulin 3.2 g/dL (2.2-4.2); Protein, Total 7.4 g/dL (6.4-8.2)
== END ==
PROVIDERS: Family Provider Family Medicine; PCP Family Medicine; Referring Provider Pediatrics Pediatric Nephrology; Visit Provider Pediatrics Pediatric Nephrology
DX: Q61.3 Polycystic kidney, unspecified (principal)
CPT/HCPCS: 36415; 80076

== ENCOUNTER → 2019-06-03 08:48 | Outpatient (CLI) | payer MEDICAID, SELFPAY ==
[2019-02-27 14:45] VITALS: BMI 31.5
--- NOTE | 2019-06-03 08:53 | US_ITS ---
STUDY: ABDOMINAL ULTRASOUND - RIGHT UPPER QUADRANT REASON FOR VISIT: Male, 24 years old abnormal LFTs TECHNIQUE: Ultrasound evaluation of the right upper quadrant was performed with real-time and static love-scale imaging. TECHNICAL QUALITY: Adequate. COMPARISON: None. FINDINGS: Liver: The liver measures 15.2 cm. There is increased echogenicity of the liver. The bile ducts are within normal limits. There is hepatic color flow. The direction of portal flow is hepatopetal. There is no demonstrated mass lesion. Gallbladder: Normal distended gallbladder. The gallbladder wall measures 2.1 mm. There is a negative sonographic Maher's sign. There is no pericholecystic fluid. There are no gallstones. Common Bile Duct (C.B.D.): The common bile duct measures 2.8 mm. Pancreas: There is normal echogenicity of the visualized pancreas. There is no demonstrated pancreatic mass or cyst. Right Kidney: Normal size of the right kidney. The right kidney measures 13.6 x 7.3 x 8.1 cm. Normal renal cortex. The right cortex measures 1.3 cm. Numerous anechoic cysts throughout the right kidney (patient has history of polycystic kidney disease). There is no right hydronephrosis. The spleen measures 13.1 x 6.6 x 6.2 cm. No splenic masses. US/Abdomen Limited IMPRESSION: 1. Increased echogenicity of the liver is nonspecific but most commonly associated with hepatic steatosis. 2. Right renal cysts compatible with history of polycystic kidney disease. Electronically Signed: Cory Theodore MD (Bro[place]) at 14:58 EST , Service support ,
[2019-06-03 10:31] LABS: Iron 99 ug/dL (65-175); Iron Binding Capacity,Total 307 ug/dL (250-450)
[2019-06-05 14:29] LABS: Anti-Centromere B Ab <0.2 AI (0.0-0.9); Anti-Chromatin 0.7 AI (0.0-0.9); Anti-Jo <0.2 AI (0.0-0.9); Anti-Scleroderma-70 AB <0.2 AI (0.0-0.9); Anti-ribosomal P Antibodies <0.2 AI (0.0-0.9); RNP Ab <0.2 AI (0.0-0.9); SJOGREN'S Anti-SS-A test < 0.2 AI (0.0-0.9); SJOGREN'S Anti-SS-B test 2.9 AI (0.0-0.9); Smith Ab <0.2 AI (0.0-0.9); Smith/RNP Ab <0.2 AI (0.0-0.9)
[2019-06-05 16:57] LABS: Anti-dsDNA Ab <1 IU/mL (0-9)
[2019-06-08 05:06] LABS: Ceruloplasmin 21.4 mg/dL (16.0-31.0); Hepatitis C Ab <0.1 s/co ratio (0.0-0.9); LDH 155 IU/L (121-224); LDH Fraction 1 19 % (17-32); LDH Fraction 2 29 % (25-40); LDH Fraction 3 24 % (17-27); LDH Fraction 4 14 % (5-13); LDH Fraction 5 14 % (4-20)
[2019-06-08 11:35] LABS: Anti-Smooth Muscle ABS 14 Units (0-19); Hepatitis B Core Ab Total Negative (Negative)
== END ==
PROVIDERS: Family Provider Family Medicine; PCP Family Medicine
DX: R94.5 Abnormal results of liver function studies (principal)
CPT/HCPCS: 36415; 76705; 82390; 83516; 83540; 83550; 83615; 83625; 86038; 86225; 86235; 86704; 86803; 86804

== ENCOUNTER → 2019-06-09 13:36 | Outpatient (CLI) | payer MEDICAID, SELFPAY ==
[2019-02-27 14:45] VITALS: BMI 31.5
[2019-06-09 14:35] LABS: Absolute Lymphocyte Count 1.69 X10^3/uL (0.83-4.51); Absolute Neutrophil Count 3.4 X10^3/uL (2.0-7.7); Basophil# 0.04 X10^3/uL; Basophil% 0.7 % (0-1); Eosinophil# 0.07 X10^3/uL; Eosinophils% 1.2 % (0-5); Hematocrit 46.6 % (40-54); Hemoglobin 15.1 g/dL (13.0-16.5); Lymphocyte # 1.69 X10^3/ul (4.0); Lymphocyte % 29.2 % (19-41); Mean Corp Hgb Conc 32.4 g/dL (32-36); Mean Corpuscular Hgb 29.4 pg (27.0-32.0); Mean Corpuscular Volume 90.8 fL (80-94); Mean Platelet Vol. 9.8 fl (6.2-12.0); Monocyte# 0.57 X10^3/uL; Monocyte% 9.8 % (0-10); NRBC Flagged by Analyzer 0 % (0-5); Neutrophil % 58.8 % (47-70); Platelet Count 281 K/mm3 (150-450); RBC Distribution Width CV 12.9 % (11.6-14.6); RBC Distribution Width SD 43.1 fl (35.1-43.9); Red Blood Count 5.13 M/mm3 (4.6-6.2); White Blood Count 5.8 K/mm3 (4.4-11.0)
[2019-06-09 14:53] LABS: Albumin, Serum 3.8 g/dL (3.2-5.0); BUN 13 mg/dL (7-18); Calcium,Total 8.9 mg/dL (8.5-10.1); Chloride 104 mmol/L (98-107); EST Glomerular Filtration Rate 96 mL/min (>60); Est Glom Filt Rate - Afr Amer 116 mL/min (>60); Glucose 92 mg/dL (74-106); Phosphorus 2.7 mg/dL (2.5-4.9); Potassium 3.9 mmol/L (3.5-5.1); Sodium Level 141 mmol/L (136-145)
[2019-06-09 15:02] LABS: Microalbumin,Random Urine 10.2 mg/L (NO RANGE EST.); Microalbumin:Creatinine Ratio 14.9 mg/g CRE (<30 mg/g CRE); Protein, Urine (Random) 6.9 mg/dL (<11.9); Protein:Creat Ratio 101 mg/g CRE (0-200)
== END ==
PROVIDERS: Family Provider Family Medicine; PCP Family Medicine; Referring Provider Pediatrics Pediatric Nephrology; Visit Provider Pediatrics Pediatric Nephrology
DX: Q61.3 Polycystic kidney, unspecified (principal); Z13.0 Encounter for screening for diseases of the blood and blood-forming organs and certain disorders involving the immune mechanism
CPT/HCPCS: 36415; 80069; 82043; 82570; 84156; 85025

== ENCOUNTER → 2019-08-09 14:54 | Outpatient (CLI) | payer MEDICAID, SELFPAY ==
[2019-02-27 14:45] VITALS: BMI 31.5
[2019-08-09 16:31] LABS: Absolute Lymphocyte Count 2.29 X10^3/uL (0.83-4.51); Absolute Neutrophil Count 2.7 X10^3/uL (2.0-7.7); Basophil# 0.03 X10^3/uL; Basophil% 0.5 % (0-1); Eosinophil# 0.08 X10^3/uL; Eosinophils% 1.4 % (0-5); Hematocrit 45.9 % (40-54); Hemoglobin 14.9 g/dL (13.0-16.5); Lymphocyte # 2.29 X10^3/ul (4.0); Lymphocyte % 40.1 % (19-41); Mean Corp Hgb Conc 32.5 g/dL (32-36); Mean Corpuscular Hgb 29.3 pg (27.0-32.0); Mean Corpuscular Volume 90.4 fL (80-94); Mean Platelet Vol. 9.6 fl (6.2-12.0); Monocyte# 0.64 X10^3/uL; Monocyte% 11.2 % (0-10); NRBC Flagged by Analyzer 0 % (0-5); Neutrophil # 2.65 X10^3/uL (2.7-7.7); Neutrophil % 46.4 % (47-70); Platelet Count 283 K/mm3 (150-450); RBC Distribution Width CV 12.9 % (11.6-14.6); RBC Distribution Width SD 42.5 fl (35.1-43.9); Red Blood Count 5.08 M/mm3 (4.6-6.2); White Blood Count 5.7 K/mm3 (4.4-11.0)
[2019-08-09 16:48] LABS: Microalbumin,Random Urine 12.4 mg/L (NO RANGE EST.); Microalbumin:Creatinine Ratio 13.9 mg/g CRE (<30 mg/g CRE); Protein, Urine (Random) 8.3 mg/dL (<11.9); Protein:Creat Ratio 93 mg/g CRE (0-200)
[2019-08-09 17:29] LABS: Albumin, Serum 4.1 g/dL (3.2-5.0); BUN 11 mg/dL (7-18); Calcium,Total 9.4 mg/dL (8.5-10.1); Chloride 106 mmol/L (98-107); EST Glomerular Filtration Rate 86 mL/min (>60); Est Glom Filt Rate - Afr Amer 104 mL/min (>60); Glucose 97 mg/dL (74-106); Phosphorus 3.8 mg/dL (2.5-4.9); Potassium 3.7 mmol/L (3.5-5.1); Sodium Level 140 mmol/L (136-145)
== END ==
PROVIDERS: PCP Family Medicine; Referring Provider Pediatrics Pediatric Nephrology; Visit Provider Pediatrics Pediatric Nephrology
DX: Q61.3 Polycystic kidney, unspecified (principal); Z13.0 Encounter for screening for diseases of the blood and blood-forming organs and certain disorders involving the immune mechanism
CPT/HCPCS: 36415; 80069; 82043; 82570; 84156; 85025

== ENCOUNTER → 2020-01-31 10:58 | Outpatient (CLI) | payer MEDICAID, SELFPAY ==
[2019-02-27 14:45] VITALS: BMI 31.5
[2020-01-31 11:58] LABS: Absolute Lymphocyte Count 2.06 X10^3/uL (0.83-4.51); Absolute Neutrophil Count 2.9 X10^3/uL (2.0-7.7); Basophil# 0.04 X10^3/uL; Basophil% 0.7 % (0-1); Eosinophil# 0.09 X10^3/uL; Eosinophils% 1.6 % (0-5); Hematocrit 43.9 % (40-54); Hemoglobin 14.4 g/dL (13.0-16.5); Lymphocyte # 2.06 X10^3/ul (4.0); Lymphocyte % 36.9 % (19-41); Mean Corp Hgb Conc 32.8 g/dL (32-36); Mean Corpuscular Hgb 30.1 pg (27.0-32.0); Mean Corpuscular Volume 91.6 fL (80-94); Mean Platelet Vol. 9.7 fl (6.2-12.0); Monocyte# 0.52 X10^3/uL; Monocyte% 9.3 % (0-10); NRBC Flagged by Analyzer 0 % (0-5); Neutrophil # 2.85 X10^3/uL (2.7-7.7); Platelet Count 253 K/mm3 (150-450); RBC Distribution Width CV 13.5 % (11.6-14.6); RBC Distribution Width SD 45.1 fl (35.1-43.9); Red Blood Count 4.79 M/mm3 (4.6-6.2); White Blood Count 5.6 K/mm3 (4.4-11.0)
[2020-01-31 12:11] LABS: PTHIN 24.8 pg/mL (18.4-80.1)
[2020-01-31 12:12] LABS: ALB/GLOB Ratio 1.2 RATIO (0.9-2.4); AST(SGOT) 18 U/L (15-37); Alanine Aminotransfer ALT/SGPT 46 U/L (16-61); Alkaline Phosphatase 56 U/L (45-117); BUN 10 mg/dL (7-18); BUN/Creat Ratio 10.6 RATIO (10-20); Bilirubin, Direct 0.29 mg/dL (0.00-0.30); Calcium,Total 8.9 mg/dL (8.5-10.1); Chloride 106 mmol/L (98-107); Creatinine, Serum 0.94 mg/dL (0.70-1.30); EST Glomerular Filtration Rate 102 mL/min (>60); Est Glom Filt Rate - Afr Amer 123 mL/min (>60); Globulin 3.4 g/dL (2.2-4.2); Glucose 105 mg/dL (74-106); Phosphorus 3.4 mg/dL (2.5-4.9); Potassium 3.9 mmol/L (3.5-5.1); Protein, Total 7.4 g/dL (6.4-8.2); Sodium Level 138 mmol/L (136-145)
[2020-01-31 12:15] LABS: Vitamin D,25 Hydroxy 37.8 ng/mL
[2020-01-31 12:24] LABS: Microalbumin,Random Urine < 5.0 mg/L (NO RANGE EST.); Protein, Urine (Random) < 6.0 mg/dL (<11.9)
== END ==
PROVIDERS: Referring Provider Pediatrics Pediatric Nephrology; Visit Provider Pediatrics Pediatric Nephrology
DX: Z13.0 Encounter for screening for diseases of the blood and blood-forming organs and certain disorders involving the immune mechanism (principal); Q61.3 Polycystic kidney, unspecified
CPT/HCPCS: 36415; 80069; 82043; 82247; 82248; 82306; 82570; 83970; 84075; 84156; 84450; 84460; 85025

== ENCOUNTER → 2020-05-08 16:02 | Outpatient (CLI) | payer OTHER, SELFPAY ==
[2019-02-27 14:45] VITALS: BMI 31.5
[2020-05-08 16:52] LABS: Protein, Urine (Random) < 6.0 mg/dL (<11.9)
[2020-05-08 17:19] LABS: AST(SGOT) 24 U/L (15-37); Alanine Aminotransfer ALT/SGPT 54 U/L (16-61); Alkaline Phosphatase 54 U/L (45-117); Anion Gap 6 (5-15); BUN 16 mg/dL (7-18); BUN/Creat Ratio 12.6 RATIO (10-20); Bilirubin, Direct 0.24 mg/dL (0.00-0.30); Calcium,Total 9.2 mg/dL (8.5-10.1); Chloride 103 mmol/L (98-107); Creatinine, Serum 1.27 mg/dL (0.70-1.30); EST Glomerular Filtration Rate 72 mL/min (>60); Est Glom Filt Rate - Afr Amer 87 mL/min (>60); Globulin 3.4 g/dL (2.2-4.2); Glucose 87 mg/dL (74-106); Phosphorus 3.9 mg/dL (2.5-4.9); Potassium 3.7 mmol/L (3.5-5.1); Protein, Total 7.4 g/dL (6.4-8.2); Sodium Level 138 mmol/L (136-145)
== END ==
PROVIDERS: Referring Provider Pediatrics Pediatric Nephrology; Visit Provider Pediatrics Pediatric Nephrology
DX: Q61.3 Polycystic kidney, unspecified (principal)
CPT/HCPCS: 36415; 80048; 80076; 82570; 84100; 84156

== ENCOUNTER → 2020-05-28 15:33 | Outpatient (CLI) | payer OTHER, SELFPAY ==
[2019-02-27 14:45] VITALS: BMI 31.5
[2020-05-28 18:01] LABS: AST(SGOT) 21 U/L (15-37); Alanine Aminotransfer ALT/SGPT 33 U/L (16-61); Alkaline Phosphatase 59 U/L (45-117); Bilirubin, Direct 0.25 mg/dL (0.00-0.30); Globulin 3.6 g/dL (2.2-4.2); Protein, Total 7.6 g/dL (6.4-8.2)
== END ==
PROVIDERS: Visit Provider Pediatrics Pediatric Nephrology
DX: Q61.3 Polycystic kidney, unspecified (principal)
CPT/HCPCS: 36415; 80076

== ENCOUNTER → 2020-07-12 13:14 | Outpatient (CLI) | payer OTHER, SELFPAY ==
[2019-02-27 14:45] VITALS: BMI 31.5
[2020-07-12 14:05] LABS: AST(SGOT) 28 U/L (15-37); Alanine Aminotransfer ALT/SGPT 70 U/L (16-61); Albumin, Serum 4.1 g/dL (3.2-5.0); Alkaline Phosphatase 63 U/L (45-117); Bilirubin, Direct 0.31 mg/dL (0.00-0.30); Globulin 3.7 g/dL (2.2-4.2); Protein, Total 7.8 g/dL (6.4-8.2)
== END ==
PROVIDERS: Referring Provider Pediatrics Pediatric Nephrology; Visit Provider Pediatrics Pediatric Nephrology
DX: Q61.3 Polycystic kidney, unspecified (principal)
CPT/HCPCS: 36415; 80076

== ENCOUNTER → 2020-08-19 15:26 | Outpatient (CLI) | payer OTHER, SELFPAY ==
[2019-02-27 14:45] VITALS: BMI 31.5
[2020-08-19 17:42] LABS: AST(SGOT) 32 U/L (15-37); Alanine Aminotransfer ALT/SGPT 55 U/L (16-61); Albumin, Serum 4.2 g/dL (3.2-5.0); Alkaline Phosphatase 57 U/L (45-117); Bilirubin, Direct 0.19 mg/dL (0.00-0.30); Globulin 3.6 g/dL (2.2-4.2); Protein, Total 7.8 g/dL (6.4-8.2)
== END ==
PROVIDERS: Referring Provider Pediatrics Pediatric Nephrology; Visit Provider Pediatrics Pediatric Nephrology
DX: Q61.3 Polycystic kidney, unspecified (principal)
CPT/HCPCS: 36415; 80076

== ENCOUNTER → 2020-09-02 16:05 | Outpatient (CLI) | payer OTHER, SELFPAY ==
[2019-02-27 14:45] VITALS: BMI 31.5
[2020-09-02 17:41] LABS: Albumin, Serum 4.1 g/dL (3.2-5.0); BUN 11 mg/dL (7-18); BUN/Creat Ratio 9.5 RATIO (10-20); Chloride 109 mmol/L (98-107); Creatinine, Serum 1.16 mg/dL (0.70-1.30); EST Glomerular Filtration Rate 80 mL/min (>60); Est Glom Filt Rate - Afr Amer 97 mL/min (>60); Glucose 87 mg/dL (74-106); Phosphorus 3.9 mg/dL (2.5-4.9); Potassium 3.7 mmol/L (3.5-5.1); Sodium Level 143 mmol/L (136-145)
[2020-09-02 18:10] LABS: Protein, Urine (Random) < 6.0 mg/dL (<11.9)
== END ==
PROVIDERS: Referring Provider Pediatrics Pediatric Nephrology; Visit Provider Pediatrics Pediatric Nephrology
DX: Q61.3 Polycystic kidney, unspecified (principal)
CPT/HCPCS: 36415; 80069; 82570; 84156

== ENCOUNTER → 2020-10-09 15:22 | Outpatient (CLI) | payer OTHER, SELFPAY ==
[2019-02-27 14:45] VITALS: BMI 31.5
[2020-10-09 18:04] LABS: AST(SGOT) 18 U/L (15-37); Alanine Aminotransfer ALT/SGPT 43 U/L (16-61); Albumin, Serum 4.1 g/dL (3.2-5.0); Alkaline Phosphatase 53 U/L (45-117); Bilirubin, Direct 0.22 mg/dL (0.00-0.30); Globulin 3.3 g/dL (2.2-4.2); Protein, Total 7.4 g/dL (6.4-8.2)
== END ==
PROVIDERS: Referring Provider Pediatrics Pediatric Nephrology; Visit Provider Pediatrics Pediatric Nephrology
DX: Q61.3 Polycystic kidney, unspecified (principal)
CPT/HCPCS: 36415; 80076

== ENCOUNTER 2020-11-15 16:21 | Outpatient (RCR) | payer OTHER, SELFPAY ==
[2019-02-27 14:45] VITALS: BMI 31.5
[2020-11-15 18:00] LABS: AST(SGOT) 19 U/L (15-37); Alanine Aminotransfer ALT/SGPT 44 U/L (16-61); Albumin, Serum 4.2 g/dL (3.2-5.0); Alkaline Phosphatase 54 U/L (45-117); Globulin 3.4 g/dL (2.2-4.2); Protein, Total 7.6 g/dL (6.4-8.2)
== END 2020-11-15 18:00 | disposition home or self-care (01) ==
LOC: LAB 16:21
PROVIDERS: PCP Student in an Organized Health Care Education/Training Program; Visit Provider Pediatrics Pediatric Nephrology
DX: Q61.2 Polycystic kidney, adult type (principal)
CPT/HCPCS: 36415; 80076

== ENCOUNTER 2020-12-17 15:32 | Outpatient (RCR) | payer OTHER, SELFPAY ==
[2019-02-27 14:45] VITALS: BMI 31.5
[2020-12-17 17:01] LABS: AST(SGOT) 134 U/L (15-37); Alanine Aminotransfer ALT/SGPT 108 U/L (16-61); Albumin, Serum 4.1 g/dL (3.2-5.0); Alkaline Phosphatase 59 U/L (45-117); Bilirubin, Direct 0.22 mg/dL (0.00-0.30); Globulin 3.6 g/dL (2.2-4.2); Protein, Total 7.7 g/dL (6.4-8.2)
== END 2020-12-17 18:00 | disposition home or self-care (01) ==
LOC: LAB 15:32
PROVIDERS: PCP Student in an Organized Health Care Education/Training Program; Referring Provider Pediatrics Pediatric Nephrology; Visit Provider Pediatrics Pediatric Nephrology
DX: Q61.2 Polycystic kidney, adult type (principal)
CPT/HCPCS: 36415; 80076

== ENCOUNTER 2021-01-24 16:21 | Outpatient (RCR) | payer OTHER, SELFPAY ==
[2019-02-27 14:45] VITALS: BMI 31.5
[2021-01-24 17:51] LABS: AST(SGOT) 21 U/L (15-37); Alanine Aminotransfer ALT/SGPT 50 U/L (16-61); Albumin, Serum 3.9 g/dL (3.2-5.0); Alkaline Phosphatase 57 U/L (45-117); Bilirubin, Direct 0.19 mg/dL (0.00-0.30); Globulin 3.2 g/dL (2.2-4.2); Protein, Total 7.1 g/dL (6.4-8.2)
== END 2021-01-24 18:00 | disposition home or self-care (01) ==
LOC: LAB 16:21
PROVIDERS: PCP Student in an Organized Health Care Education/Training Program; Referring Provider Pediatrics Pediatric Nephrology; Visit Provider Pediatrics Pediatric Nephrology
DX: Q61.2 Polycystic kidney, adult type (principal)
CPT/HCPCS: 36415; 80076

== ENCOUNTER 2021-03-05 12:00 | Outpatient (RCR) | payer OTHER, SELFPAY ==
[2019-02-27 14:45] VITALS: BMI 31.5
[2021-03-05 12:32] LABS: Absolute Lymphocyte Count 1.78 X10^3/uL (0.83-4.51); Absolute Neutrophil Count 2.9 X10^3/uL (2.0-7.7); Basophil# 0.03 X10^3/uL; Basophil% 0.6 % (0-1); Eosinophil# 0.07 X10^3/uL; Eosinophils% 1.3 % (0-5); Hematocrit 44.3 % (40-54); Hemoglobin 14.5 g/dL (13.0-16.5); Lymphocyte # 1.78 X10^3/ul (0.83-4.51); Lymphocyte % 33.3 % (19-41); Mean Corp Hgb Conc 32.7 g/dL (32-36); Mean Corpuscular Hgb 29.2 pg (27.0-32.0); Mean Corpuscular Volume 89.3 fL (80-94); Mean Platelet Vol. 9.4 fl (6.2-12.0); Monocyte# 0.53 X10^3/uL; Monocyte% 9.9 % (0-10); NRBC Flagged by Analyzer 0 % (0-5); Neutrophil # 2.91 X10^3/uL (2.7-7.7); Neutrophil % 54.5 % (47-70); Platelet Count 265 K/mm3 (150-450); RBC Distribution Width CV 12.6 % (11.6-14.6); RBC Distribution Width SD 41.3 fl (35.1-43.9); Red Blood Count 4.96 M/mm3 (4.6-6.2); White Blood Count 5.3 K/mm3 (4.4-11.0)
[2021-03-05 13:16] LABS: AST(SGOT) 22 U/L (15-37); Alanine Aminotransfer ALT/SGPT 53 U/L (16-61); Albumin, Serum 3.9 g/dL (3.2-5.0); Alkaline Phosphatase 51 U/L (45-117); Anion Gap 4 (5-15); BUN 10 mg/dL (7-18); BUN/Creat Ratio 10.8 RATIO (10-20); Bilirubin, Direct 0.17 mg/dL (0.00-0.30); Calcium,Total 8.7 mg/dL (8.5-10.1); Chloride 104 mmol/L (98-107); Creatinine, Serum 0.93 mg/dL (0.70-1.30); EST Glomerular Filtration Rate 103 mL/min (>60); Est Glom Filt Rate - Afr Amer 124 mL/min (>60); Globulin 3.4 g/dL (2.2-4.2); Glucose 106 mg/dL (74-106); Potassium 3.8 mmol/L (3.5-5.1); Protein, Total 7.3 g/dL (6.4-8.2); Sodium Level 137 mmol/L (136-145)
[2021-03-05 13:23] LABS: PTHIN 32.6 pg/mL (18.4-80.1)
[2021-03-05 13:28] LABS: Vitamin D,25 Hydroxy 50.1 ng/mL
[2021-03-05 13:49] LABS: Protein, Urine (Random) < 6.0 mg/dL (<11.9)
== END 2021-03-05 18:00 | disposition home or self-care (01) ==
LOC: LAB 12:00
PROVIDERS: PCP Student in an Organized Health Care Education/Training Program; Referring Provider Pediatrics Pediatric Nephrology; Visit Provider Pediatrics Pediatric Nephrology
DX: N18.2 Chronic kidney disease, stage 2 (mild) (principal); Q61.2 Polycystic kidney, adult type; E55.9 Vitamin D deficiency, unspecified
CPT/HCPCS: 36415; 80048; 80076; 82306; 82570; 83970; 84100; 84156; 85025

== ENCOUNTER → 2021-04-08 15:58 | Outpatient (CLI) | payer OTHER, SELFPAY ==
[2021-04-08 16:55] LABS: Microalbumin,Random Urine 5.1 mg/L (NO RANGE EST.); Protein, Urine (Random) < 6.0 mg/dL (<11.9)
[2021-04-08 17:11] LABS: Albumin, Serum 3.9 g/dL (3.2-5.0); BUN 13 mg/dL (7-18); BUN/Creat Ratio 12.3 RATIO (10-20); Calcium,Total 9.1 mg/dL (8.5-10.1); Chloride 102 mmol/L (98-107); Creatinine, Serum 1.06 mg/dL (0.70-1.30); EST Glomerular Filtration Rate 88 mL/min (>60); Est Glom Filt Rate - Afr Amer 107 mL/min (>60); Glucose 90 mg/dL (74-106); Phosphorus 4.1 mg/dL (2.5-4.9); Potassium 3.7 mmol/L (3.5-5.1); Sodium Level 136 mmol/L (136-145)
[2021-04-08 17:23] LABS: Vitamin D,25 Hydroxy 39.9 ng/mL
[2021-04-09 08:46] LABS: PTHIN 37.9 pg/mL (18.4-80.1)
== END ==
PROVIDERS: PCP Student in an Organized Health Care Education/Training Program; Referring Provider Pediatrics Pediatric Nephrology; Visit Provider Pediatrics Pediatric Nephrology
DX: N18.2 Chronic kidney disease, stage 2 (mild) (principal)
CPT/HCPCS: 36415; 80069; 82043; 82306; 82570; 83970; 84156

== ENCOUNTER → 2021-05-19 16:06 | Outpatient (CLI) | payer OTHER, SELFPAY ==
[2021-05-19 17:38] LABS: AST(SGOT) 26 U/L (15-37); Alanine Aminotransfer ALT/SGPT 62 U/L (16-61); Albumin, Serum 3.9 g/dL (3.2-5.0); Alkaline Phosphatase 53 U/L (45-117); Bilirubin, Direct 0.19 mg/dL (0.00-0.30); Globulin 3.6 g/dL (2.2-4.2); Protein, Total 7.5 g/dL (6.4-8.2)
== END ==
PROVIDERS: PCP Student in an Organized Health Care Education/Training Program; Referring Provider Pediatrics Pediatric Nephrology; Visit Provider Pediatrics Pediatric Nephrology
DX: Q61.2 Polycystic kidney, adult type (principal)
CPT/HCPCS: 36415; 80076

== ENCOUNTER → 2021-06-27 16:52 | Outpatient (CLI) | payer OTHER, SELFPAY ==
[2021-06-27 17:57] LABS: AST(SGOT) 30 U/L (15-37); Alanine Aminotransfer ALT/SGPT 67 U/L (16-61); Albumin, Serum 4.1 g/dL (3.2-5.0); Alkaline Phosphatase 48 U/L (45-117); Bilirubin, Direct 0.15 mg/dL (0.00-0.30); Globulin 3.5 g/dL (2.2-4.2); Protein, Total 7.6 g/dL (6.4-8.2)
== END ==
PROVIDERS: PCP Student in an Organized Health Care Education/Training Program; Visit Provider Pediatrics Pediatric Nephrology
DX: Q61.2 Polycystic kidney, adult type (principal)
CPT/HCPCS: 36415; 80076

== ENCOUNTER 2021-08-12 15:06 | Outpatient (CLI) | payer OTHER, SELFPAY ==
[2021-08-12 16:03] LABS: AST(SGOT) 89 U/L (15-37); Alanine Aminotransfer ALT/SGPT 139 U/L (16-61); Albumin, Serum 3.9 g/dL (3.2-5.0); Alkaline Phosphatase 54 U/L (45-117); Bilirubin, Direct 0.19 mg/dL (0.00-0.30); Globulin 3.6 g/dL (2.2-4.2); Protein, Total 7.5 g/dL (6.4-8.2)
== END 2021-08-12 23:59 | disposition short-term general hospital (02) ==
LOC: LAB 15:07
PROVIDERS: PCP Student in an Organized Health Care Education/Training Program; Visit Provider Pediatrics Pediatric Nephrology
DX: Q61.2 Polycystic kidney, adult type (principal)
CPT/HCPCS: 36415; 80076

== ENCOUNTER 2021-10-09 15:46 | Outpatient (RCR) | payer OTHER, MEDICAID, SELFPAY ==
[2021-03-26 00:22] VITALS: BMI 31.5
[2021-10-09 16:53] LABS: AST(SGOT) 68 U/L (15-37); Alanine Aminotransfer ALT/SGPT 188 U/L (16-61); Albumin, Serum 4.1 g/dL (3.2-5.0); Alkaline Phosphatase 55 U/L (45-117); Bilirubin, Direct 0.14 mg/dL (0.00-0.30); Globulin 3.5 g/dL (2.2-4.2); Protein, Total 7.6 g/dL (6.4-8.2)
== END 2021-10-23 18:00 | disposition home or self-care (01) ==
LOC: LAB 15:46
PROVIDERS: PCP Student in an Organized Health Care Education/Training Program; Referring Provider Pediatrics Pediatric Nephrology; Visit Provider Pediatrics Pediatric Nephrology
DX: Q61.2 Polycystic kidney, adult type (principal)
CPT/HCPCS: 36415; 80076

== ENCOUNTER 2021-11-04 13:07 | Outpatient (CLI) | payer OTHER, MEDICAID, SELFPAY ==
[2021-11-04 14:03] LABS: Microalbumin,Random Urine < 5.0 mg/L (NO RANGE EST.); Protein, Urine (Random) < 6.0 mg/dL (<11.9)
[2021-11-04 14:19] LABS: PTHIN 43.5 pg/mL (18.4-80.1)
[2021-11-04 14:22] LABS: ALB/GLOB Ratio 1.1 RATIO (0.9-2.4); AST(SGOT) 28 U/L (15-37); Alanine Aminotransfer ALT/SGPT 75 U/L (16-61); Albumin, Serum 3.9 g/dL (3.2-5.0); Alkaline Phosphatase 53 U/L (45-117); Anion Gap 5 (5-15); BUN 12 mg/dL (7-18); BUN/Creat Ratio 12.3 RATIO (10-20); Bilirubin, Direct 0.16 mg/dL (0.00-0.30); Chloride 103 mmol/L (98-107); Creatinine, Serum 0.97 mg/dL (0.70-1.30); EST Glomerular Filtration Rate 97 mL/min (>60); Est Glom Filt Rate - Afr Amer 118 mL/min (>60); Globulin 3.4 g/dL (2.2-4.2); Glucose 104 mg/dL (74-106); Protein, Total 7.3 g/dL (6.4-8.2); Sodium Level 136 mmol/L (136-145)
== END 2021-11-04 23:59 | disposition home or self-care (01) ==
LOC: LAB 13:09
PROVIDERS: PCP Student in an Organized Health Care Education/Training Program; Visit Provider Pediatrics Pediatric Nephrology
DX: N18.2 Chronic kidney disease, stage 2 (mild) (principal); E55.9 Vitamin D deficiency, unspecified; Q61.2 Polycystic kidney, adult type
CPT/HCPCS: 36415; 80053; 82043; 82248; 82306; 82570; 83970; 84156

== ENCOUNTER 2021-11-28 14:37 | Outpatient (RCR) | payer OTHER, SELFPAY ==
[2021-10-24 03:26] VITALS: BMI 31.5
[2021-11-28 15:59] LABS: AST(SGOT) 30 U/L (15-37); Alanine Aminotransfer ALT/SGPT 75 U/L (16-61); Albumin, Serum 4.2 g/dL (3.2-5.0); Alkaline Phosphatase 49 U/L (45-117); Bilirubin, Direct 0.22 mg/dL (0.00-0.30); Globulin 3.4 g/dL (2.2-4.2); Protein, Total 7.6 g/dL (6.4-8.2)
== END 2021-11-28 18:00 | disposition home or self-care (01) ==
LOC: LAB 14:37
PROVIDERS: PCP Student in an Organized Health Care Education/Training Program; Referring Provider Pediatrics Pediatric Nephrology; Visit Provider Pediatrics Pediatric Nephrology
DX: N18.2 Chronic kidney disease, stage 2 (mild) (principal); Q61.2 Polycystic kidney, adult type; E55.9 Vitamin D deficiency, unspecified
CPT/HCPCS: 36415; 80076

== ENCOUNTER 2022-01-05 17:19 | Outpatient (RCR) | payer OTHER, SELFPAY ==
[2021-12-23 21:07] VITALS: BMI 31.5
[2022-01-05 19:21] LABS: AST(SGOT) 34 U/L (15-37); Alanine Aminotransfer ALT/SGPT 91 U/L (16-61); Albumin, Serum 4.1 g/dL (3.2-5.0); Alkaline Phosphatase 53 U/L (45-117); Bilirubin, Direct 0.17 mg/dL (0.00-0.30); Globulin 3.5 g/dL (2.2-4.2); Protein, Total 7.6 g/dL (6.4-8.2)
== END 2022-01-05 23:59 | disposition home or self-care (01) ==
LOC: LAB 17:19
PROVIDERS: PCP Student in an Organized Health Care Education/Training Program; Referring Provider Pediatrics Pediatric Nephrology; Visit Provider Pediatrics Pediatric Nephrology
DX: Q61.2 Polycystic kidney, adult type (principal)
CPT/HCPCS: 36415; 80076

== ENCOUNTER 2022-02-05 12:40 | Outpatient (RCR) | payer OTHER, SELFPAY ==
[2022-01-23 07:25] VITALS: BMI 31.5
[2022-02-05 13:49] LABS: AST(SGOT) 25 U/L (15-37); Alanine Aminotransfer ALT/SGPT 66 U/L (16-61); Albumin, Serum 4.2 g/dL (3.2-5.0); Alkaline Phosphatase 48 U/L (45-117); Globulin 3.7 g/dL (2.2-4.2); Protein, Total 7.9 g/dL (6.4-8.2)
== END 2022-02-22 02:51 | disposition home or self-care (01) ==
LOC: LAB 12:40
PROVIDERS: PCP Student in an Organized Health Care Education/Training Program; Referring Provider Pediatrics Pediatric Nephrology; Visit Provider Pediatrics Pediatric Nephrology
DX: Q61.2 Polycystic kidney, adult type (principal)
CPT/HCPCS: 36415; 80076

== ENCOUNTER 2022-03-14 11:04 | Outpatient (RCR) | payer OTHER, SELFPAY ==
[2022-02-22 02:51] VITALS: BMI 31.5
[2022-03-14 12:46] LABS: AST(SGOT) 28 U/L (15-37); Alanine Aminotransfer ALT/SGPT 71 U/L (16-61); Albumin, Serum 4.1 g/dL (3.2-5.0); Alkaline Phosphatase 58 U/L (45-117); Bilirubin, Direct 0.27 mg/dL (0.00-0.30); Globulin 3.7 g/dL (2.2-4.2); Protein, Total 7.8 g/dL (6.4-8.2)
== END 2022-03-14 18:00 | disposition home or self-care (01) ==
LOC: LAB 11:04
PROVIDERS: PCP Student in an Organized Health Care Education/Training Program; Referring Provider Pediatrics Pediatric Nephrology; Visit Provider Pediatrics Pediatric Nephrology
DX: Q61.2 Polycystic kidney, adult type (principal)
CPT/HCPCS: 36415; 80076

== ENCOUNTER → 2022-04-04 | Outpatient (CLI) | payer OTHER, SELFPAY ==
[2022-04-04 12:03] LABS: Cholesterol 203 mg/dL (200); Glucose 114 mg/dL (74-106); High Density Lipoprotein 34 mg/dL; Triglycerides 196 mg/dL; Very Low Density Lipoprotein 39 mg/dL (5-40)
== END | disposition home or self-care (01) ==
LOC: LAB 10:33
PROVIDERS: PCP Student in an Organized Health Care Education/Training Program; Referring Provider Student in an Organized Health Care Education/Training Program; Visit Provider Student in an Organized Health Care Education/Training Program
DX: Z00.00 Encounter for general adult medical examination without abnormal findings (principal); Z13.220 Encounter for screening for lipoid disorders; Z13.1 Encounter for screening for diabetes mellitus
CPT/HCPCS: 36415; 80061; 82947

== ENCOUNTER 2022-05-06 15:47 | Outpatient (RCR) | payer OTHER, SELFPAY ==
[2022-03-26 00:09] VITALS: BMI 31.5
[2022-05-06 17:06] LABS: Hemoglobin 14.9 g/dL (13.0-16.5); Mean Corp Hgb Conc 31.7 g/dL (32-36); Mean Corpuscular Hgb 28.3 pg (27.0-32.0); Mean Corpuscular Volume 89.2 fL (80-94); Mean Platelet Vol. 9.7 fl (6.2-12.0); Platelet Count 303 K/mm3 (150-450); RBC Distribution Width SD 42.6 fl (35.1-43.9); Red Blood Count 5.27 M/mm3 (4.6-6.2); White Blood Count 10.3 K/mm3 (4.4-11.0)
[2022-05-06 17:24] LABS: Vitamin D,25 Hydroxy 30.8 ng/mL
[2022-05-06 17:40] LABS: AST(SGOT) 25 U/L (15-37); Alanine Aminotransfer ALT/SGPT 62 U/L (16-61); Albumin, Serum 3.9 g/dL (3.2-5.0); Alkaline Phosphatase 52 U/L (45-117); Bilirubin, Direct 0.13 mg/dL (0.00-0.30); Globulin 3.7 g/dL (2.2-4.2); Microalbumin,Random Urine < 5.0 mg/L (NO RANGE EST.); Protein, Total 7.6 g/dL (6.4-8.2); Protein, Urine (Random) < 6.0 mg/dL (<11.9)
[2022-05-07 07:37] LABS: Anion Gap 7 (5-15); BUN 12 mg/dL (7-18); BUN/Creat Ratio 10.4 RATIO (10-20); Calcium,Total 9.1 mg/dL (8.5-10.1); Chloride 109 mmol/L (98-107); Creatinine, Serum 1.15 mg/dL (0.70-1.30); EST Glomerular Filtration Rate 80 mL/min (>60); Est Glom Filt Rate - Afr Amer 97 mL/min (>60); Glucose 91 mg/dL (74-106); Potassium 3.8 mmol/L (3.5-5.1); Sodium Level 142 mmol/L (136-145)
== END 2022-05-06 18:00 | disposition home or self-care (01) ==
LOC: LAB 15:47
PROVIDERS: PCP Student in an Organized Health Care Education/Training Program; Referring Provider Pediatrics Pediatric Nephrology; Visit Provider Pediatrics Pediatric Nephrology
DX: Q61.2 Polycystic kidney, adult type (principal); E55.9 Vitamin D deficiency, unspecified
CPT/HCPCS: 36415; 80048; 80076; 82043; 82306; 82570; 84100; 84156; 85027

== ENCOUNTER 2022-06-26 16:25 | Outpatient (RCR) | payer OTHER, SELFPAY ==
[2022-05-26 10:34] VITALS: BMI 31.5
[2022-06-26 17:36] LABS: AST(SGOT) 24 U/L (15-37); Alanine Aminotransfer ALT/SGPT 63 U/L (16-61); Alkaline Phosphatase 51 U/L (45-117); Bilirubin, Direct 0.14 mg/dL (0.00-0.30); Globulin 3.5 g/dL (2.2-4.2); Protein, Total 7.5 g/dL (6.4-8.2)
== END 2022-06-26 18:00 | disposition home or self-care (01) ==
LOC: LAB 16:25
PROVIDERS: PCP Student in an Organized Health Care Education/Training Program; Referring Provider Pediatrics Pediatric Nephrology; Visit Provider Pediatrics Pediatric Nephrology
DX: Q61.2 Polycystic kidney, adult type (principal)
CPT/HCPCS: 36415; 80076

== ENCOUNTER 2022-07-28 10:40 | Outpatient (RCR) | payer OTHER, SELFPAY ==
[2022-07-26 04:28] VITALS: BMI 31.5
[2022-07-28 12:23] LABS: AST(SGOT) 39 U/L (15-37); Alanine Aminotransfer ALT/SGPT 118 U/L (16-61); Albumin, Serum 3.8 g/dL (3.2-5.0); Alkaline Phosphatase 54 U/L (45-117); Bilirubin, Direct 0.22 mg/dL (0.00-0.30); Globulin 3.6 g/dL (2.2-4.2); Protein, Total 7.4 g/dL (6.4-8.2)
== END 2022-07-28 18:00 | disposition home or self-care (01) ==
LOC: LAB 10:40
PROVIDERS: PCP Student in an Organized Health Care Education/Training Program; Referring Provider Pediatrics Pediatric Nephrology; Visit Provider Pediatrics Pediatric Nephrology
DX: Q61.2 Polycystic kidney, adult type (principal)
CPT/HCPCS: 36415; 80076

== ENCOUNTER 2022-09-14 08:59 | Outpatient (RCR) | payer OTHER, SELFPAY | END 2022-09-14 18:00 | disposition home or self-care (01) | LOC: LAB 08:59 | PROVIDERS: PCP Student in an Organized Health Care Education/Training Program; Referring Provider Pediatrics Pediatric Nephrology; Visit Provider Pediatrics Pediatric Nephrology | DX: Z00.00 Encounter for general adult medical examination without abnormal findings (principal) ==

== ENCOUNTER 2022-09-14 09:07 | Outpatient (RCR) | payer OTHER, MEDICAID, SELFPAY ==
[2022-08-26 08:39] VITALS: BMI 31.5
[2022-09-14 11:00] LABS: AST(SGOT) 31 U/L (15-37); Alanine Aminotransfer ALT/SGPT 55 U/L (16-61); Albumin, Serum 3.9 g/dL (3.2-5.0); Alkaline Phosphatase 56 U/L (45-117); Globulin 3.5 g/dL (2.2-4.2); Protein, Total 7.4 g/dL (6.4-8.2)
== END 2022-09-14 18:00 | disposition home or self-care (01) ==
LOC: LAB 09:07
PROVIDERS: PCP Student in an Organized Health Care Education/Training Program; Referring Provider Pediatrics Pediatric Nephrology; Visit Provider Pediatrics Pediatric Nephrology
DX: Q61.2 Polycystic kidney, adult type (principal)
CPT/HCPCS: 36415; 80076

== ENCOUNTER 2022-10-14 14:18 | Emergency (ER) | payer OTHER, MEDICAID, SELFPAY ==
[2022-10-14 14:20] VITALS: BP 134/100; PULSE 64; RESP 15; TEMP 36.4; O2SAT 99; BMI 34.5
--- NOTE | 2022-10-14 14:30 | RAD_ITS ---
STUDY: X-RAY - LEFT ANKLE REASON FOR EXAM: Male, 27 years old. Pain following injury. TECHNIQUE: 3 view(s) of the ankle. COMPARISON: None. FINDINGS: Normal visualized distal tibia and fibula. Normal medial and lateral malleoli. Normal tibiotalar articulation and ankle mortise. Normal visualized talus and calcaneus. The visualized subtalar, talonavicular, calcaneocuboid and tarsal articulations are normal. Soft tissue swelling. Joint effusion. RAD/Ankle min 3 Views IMPRESSION: Soft tissue swelling. Joint effusion. Electronically Signed: Storm Le MD at 15:08 EDT ,
--- NOTE | 2022-10-14 17:41 | EDS_ITS ---
HPI History of Present Illness HPI Narrative: Patient presents with injury to his left ankle that occurred yesterday. Patient states he was playing soccer and thinks he was kicked by another player. Patient states his ankle inverted. Patient describes the pain as sharp. Patient states the pain is localized to the left ankle. Patient denies any pain over the proximal fibula or fifth metatarsal. Patient states his pain is worse with weightbearing and ambulation. Patient states it is better with ice packs and an Suleiman wrap. Patient denies any paresthesias or weakness. Patient denies any other injuries. Chief Complaint: Lower Extremity Injury Informant: patient Onset/Context/Timing Onset: Yesterday Context: Sudden Onset Timing: Continuous Quality of Pain: Sharp Location: Left ankle Worsened by: Standing Relieved by: Ice, Suleiman wrap Associated Symptoms Associated Symptoms: Negative for Parasthesia, Weakness or Loss of Funtion [facility] Medical History Polycystic kidney disease Home Medications NK 01/23/19 [History Last Taken Unknown] Allergy/AdvReac Type Severity Reaction Status Date / Time No Known Allergies Allergy Verified 02/27/19 14:37 Social History Smoking Status: Never smoker ROS ROS ED Constitutional Constitutional ED: Denies chills or fever(s) Eyes Eyes: Denies blurry vision or change in vision ENT ENT ED: Denies rhinorrhea or sore throat Cardiovascular Cardiovascular: Denies chest pain or palpitations Respiratory/Chest Respiratory/Chest: Denies cough or dyspnea Gastrointestinal Gastrointestinal: Denies nausea or vomiting Genitourinary Genitourinary ED: Denies dysuria or hematuria Musculoskeletal Musculoskeletal: Denies back pain or neck pain Integumentary Denies abscess or rash Neurologic Neurologic: Denies headache(s) or weakness Allergic/Immunologic Allergic/Immunologic ED: Denies mouth swelling or urticaria EXAM Physical Exam Const Vital Signs: 10/14/22 14:20 Temperature 97.5 F L Temperature Source Temporal Pulse Rate 64 Respiratory Rate 15 Blood Pressure 134/100 H Blood Pressure Mean 111 Pulse Ox 99 Oxygen Delivery Method Room Air Positive well nourished and well developed General Appearance ED: well developed and NAD HEENT Reports moist mucous membranes Neck full ROM Extremity Extremity Narrative: There is tenderness and edema over the left ankle. There is tenderness over the medial and lateral malleoli. There is no bony crepitance or step-off. There is no obvious deformity noted. Range of motion was limited in all motions of the left ankle secondary to pain. There is no laxity appreciated. Pedal pulses are equal bilaterally. Sensation was intact to light touch in all digits. Capillary refill was less than 2 seconds in all digits. There is no tenderness over the proximal fibula. There is no tenderness over the fifth metatarsal. Neuro oriented x3, CN's II-XII intact bilaterally, moves all extremities and no sensory deficits noted Sensorium / Orientation: alert Motor Exam: strength 5/5 throughout Psych mental status grossly normal Skin no wounds MDM MDM MDM Narrative Medical decision making narrative: Differential diagnosis includes fracture, sprain, and contusion. X-rays of the left ankle will be obtained to assess for fracture. Radiography Diagnostic Testing: Clinical Impression(s) from Imaging Studies Ankle X-Ray 10/14/22 14:30 IMPRESSION: Soft tissue swelling. Joint effusion. Electronically Signed: Storm Le MD at 15:08 EDT , X-rays of the left ankle were obtained. There are 3 views. On my independent interpretation, there is no acute fracture. There is no dislocation. There is some mild soft tissue swelling. Radiologist also interpreted the x-rays and agrees. Treatment and Re-Evaluation Narrative: Patient was advised of his findings. Patient was instructed to continue using the Suleiman wrap as needed. Patient was given an Aircast. Patient was instructed to ice and elevate the left ankle. Patient was instructed to take Tylenol or ibuprofen as needed for pain. Patient was instructed to follow-up with his primary care physician in 5 to 7 days. Patient understood and was agreeable with the plan. All questions were answered. Discharge Plan Triage Chief Complaint: Lower Extremity Injury ED Provider: Alberto Casas Dx/Rx/DC Orders Clinical Impression: Left ankle sprain Instructions: ED Ankle Sprain (Adult) Prescriptions: No Action NK Primary Care Provider: Matthias Abarca Referrals: Matthias Abarca DO [Primary Care Provider] - 5-7 Days Disposition Disposition: Home, Self Care
== END 2022-10-14 18:20 | disposition home or self-care (01) ==
PROVIDERS: Emergency Provider Emergency Medicine; PCP Student in an Organized Health Care Education/Training Program; Visit Provider Emergency Medicine
DX: S93.402A Sprain of unspecified ligament of left ankle, initial encounter (principal); W50.1XXA Accidental kick by another person, initial encounter; Y93.66 Activity, soccer
CPT/HCPCS: 73610; 99283

== ENCOUNTER 2022-10-26 14:25 | Outpatient (RCR) | payer OTHER, SELFPAY ==
[2022-09-22 22:32] VITALS: BMI 31.5
[2022-10-26 16:16] LABS: AST(SGOT) 27 U/L (15-37); Alanine Aminotransfer ALT/SGPT 56 U/L (16-61); Albumin, Serum 4.1 g/dL (3.2-5.0); Alkaline Phosphatase 58 U/L (45-117); Bilirubin, Direct 0.19 mg/dL (0.00-0.30); Globulin 3.3 g/dL (2.2-4.2); Protein, Total 7.4 g/dL (6.4-8.2)
== END 2022-11-22 02:08 | disposition home or self-care (01) ==
LOC: LAB 14:25
PROVIDERS: PCP Student in an Organized Health Care Education/Training Program; Referring Provider Pediatrics Pediatric Nephrology; Visit Provider Pediatrics Pediatric Nephrology
DX: Q61.2 Polycystic kidney, adult type (principal); N18.2 Chronic kidney disease, stage 2 (mild); E55.9 Vitamin D deficiency, unspecified; Z00.00 Encounter for general adult medical examination without abnormal findings; Z13.220 Encounter for screening for lipoid disorders; Z13.1 Encounter for screening for diabetes mellitus
CPT/HCPCS: 36415; 80076

== ENCOUNTER → 2022-11-06 | Outpatient (CLI) | payer OTHER, SELFPAY ==
[2022-11-06 11:51] LABS: Hematocrit 45.2 % (40-54); Hemoglobin 14.6 g/dL (13.0-16.5); Mean Corp Hgb Conc 32.3 g/dL (32-36); Mean Corpuscular Hgb 28.5 pg (27.0-32.0); Mean Corpuscular Volume 88.3 fL (80-94); Mean Platelet Vol. 9.6 fl (6.2-12.0); Platelet Count 293 K/mm3 (150-450); RBC Distribution Width CV 13.1 % (11.6-14.6); RBC Distribution Width SD 42.3 fl (35.1-43.9); Red Blood Count 5.12 M/mm3 (4.6-6.2); White Blood Count 6.9 K/mm3 (4.4-11.0)
[2022-11-06 12:18] LABS: Albumin, Serum 3.9 g/dL (3.2-5.0); BUN 14 mg/dL (7-18); BUN/Creat Ratio 13.5 RATIO (10-20); Calcium,Total 9.4 mg/dL (8.5-10.1); Chloride 107 mmol/L (98-107); Creatinine, Serum 1.04 mg/dL (0.70-1.30); EST Glomerular Filtration Rate 89 mL/min (>60); Est Glom Filt Rate - Afr Amer 108 mL/min (>60); Glucose 97 mg/dL (74-106); Phosphorus 3.7 mg/dL (2.5-4.9); Potassium 3.8 mmol/L (3.5-5.1); Sodium Level 137 mmol/L (136-145)
[2022-11-06 12:20] LABS: Vitamin D,25 Hydroxy 31.9 ng/mL
[2022-11-06 12:24] LABS: Protein, Urine (Random) < 6.0 mg/dL (<11.9)
== END | disposition home or self-care (01) ==
LOC: LAB 11:18
PROVIDERS: PCP Student in an Organized Health Care Education/Training Program; Referring Provider Pediatrics Pediatric Nephrology; Visit Provider Pediatrics Pediatric Nephrology
DX: Q61.2 Polycystic kidney, adult type (principal); E55.9 Vitamin D deficiency, unspecified
CPT/HCPCS: 36415; 80069; 82043; 82306; 82570; 84156; 85027

== ENCOUNTER 2022-12-10 19:18 | Emergency (ER) | payer OTHER, MEDICAID, SELFPAY ==
[2022-12-10 19:19] VITALS: BP 160/109; PULSE 59; RESP 18; TEMP 36.7; O2SAT 98; BMI 35.7
--- NOTE | 2022-12-10 19:45 | EDS_ITS ---
HPI <REED Prakash - Last Filed: 12/10/22 20:59> History of Present Illness Chief Complaint: Headache Narrative Narrative: 27-year-old male past medical history of polycystic kidney disease presents with a headache. He had to moderate headaches earlier this week but today around 1 PM started developing a left temporal headache that started slowly. He took a nap and when he woke up it was much worse like a hot poker was going into his head. He had nausea and vomiting. The pain has lessened a little bit but is still there. Denies visual deficits or focal motor or sensory changes. PFSH <REED Prakash - Last Filed: 12/10/22 20:59> PFSH Medical History Polycystic kidney disease Home Medications NK 01/23/19 [History Last Taken Unknown] Allergy/AdvReac Type Severity Reaction Status Date / Time No Known Allergies Allergy Verified 12/10/22 19:21 Family History no significant family his Social History Smoking Status: Never smoker ROS <REED Prakash - Last Filed: 12/10/22 20:59> ROS ED ROS Narrative Constitutional: Negative for fever, chills, malaise. Eyes: Negative for visual change. CVS: Negative for chest pain, syncope. Respiratory: Negative for shortness of breath. GI: Positive for nausea, vomiting. Neuro: Positive for headache, negative for motor/sensory dysfunction. EXAM <REED Prakash - Last Filed: 12/10/22 20:59> Physical Exam Narrative Exam Narrative: CONST: Patient appears pale and uncomfortable, sitting in no acute distress. EYES: Normal inspection. PERRLA, EOMI. ENT: Normal inspection, moist mucous membranes. NECK: Normal inspection. No meningismus. RESP: No respiratory distress, CTAB. CVS: Regular rate and rhythm, no murmur, no gallop. SKIN: Color normal, no rash, warm, dry, intact. EXTREMITIES: Normal appearance, no pedal edema. NEURO: Oriented x4. 5/5 strength upper and lower extremities, normal finger- nose bilaterally. PSYCH: Normal affect. Const Vital Signs: 12/10/22 19:19 Temperature 98.0 F Temperature Source Temporal Pulse Rate 59 L Respiratory Rate 18 Blood Pressure 160/109 H Blood Pressure Mean 126 Pulse Ox 98 Oxygen Delivery Method Room Air <Dr. Yg Hernandez, - Last Filed: 12/11/22 00:07> Physical Exam Const Vital Signs: 12/10/22 19:19 Temperature 98.0 F Temperature Source Temporal Pulse Rate 59 L Respiratory Rate 18 Blood Pressure 160/109 H Blood Pressure Mean 126 Pulse Ox 98 Oxygen Delivery Method Room Air MDM <REED Prakash - Last Filed: 12/10/22 20:59> MDM MDM Narrative Medical decision making narrative: History gathered from: Patient and spouse Patient having gradual onset left temporal headache with nausea and vomiting that started at 1 PM today. He has a history of infrequent migraines but states this headache is the worst he has ever had. He is awake alert. BP 160/109, otherwise normal vital signs. He does look pale and like he does not feel well but nontoxic. He has no focal neurological deficits. Does not have temporal artery tenderness and is not in the common age range for temporal arteritis. With this headache being more severe than his previous headaches and the possible increased risk of aneurysm with his history of polycystic kidney disease a CT brain was ordered and symptoms were treated with IV Compazine and Benadryl. CT shows no acute process. Patient then additionally given Toradol. He states he is feeling much improved and is comfortable going home. I recommended he follow-up with his primary care and he was discharged in stable condition. Differential: migraine, ICH, mass Radiography Diagnostic Testing: Clinical Impression(s) from Imaging Studies Brain CT 12/10/22 19:49 IMPRESSION: No acute intracranial findings. Electronically Signed: Martin Welch MD at 20:41 EDT , <Dr. Yg Hernandez, - Last Filed: 12/11/22 00:07> MDM Radiography Diagnostic Testing: Clinical Impression(s) from Imaging Studies Brain CT 12/10/22 19:49 IMPRESSION: No acute intracranial findings. Electronically Signed: Martin Welch MD at 20:41 EDT , Treatment and Re-Evaluation Narrative: ED attending note: I evaluated the patient in conjunction with the CHANTELL. I agree with his/her statements and above findings. I have personally performed a face to face assessment of the patient and have reviewed the CHANTELL Note. I performed a substantive portion of the visit including all aspects of the following. I personally saw the patient performed chart review, physical exam, reviewed labs, imaging (if obtained), and formulated a treatment and management plan. 27-year-old male here for headache. Patient denies sudden onset or thunderclap headache, denies maximal intensity within 1 minute, vomiting, neck pain or stiffness, changes in vision, fever, history malignancy, syncope, seizures. 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 Exam: Nursing triage notes reviewed, Vital signs reviewed Constitutional: please see mdm HENT: MMM Eyes: Pupils equal round and reactive to light, Extraocular muscles intact Neck: No stridor, no JVD, full neck ROM Lungs: Clear to auscultation, No wheezing or rales. No increased work of breathing, no conversational dyspnea, no accessory muscle use, no nasal flaring. No respiratory distress noted Heart: Regular rate and rhythm, No murmurs, No rubs and No gallops, 2+ distal pulses (radial, femoral, posterior tibial) in all extremities Abdomen: Soft, there is no tenderness, rigidity, rebound or guarding, no obvious peritoneal signs, no palpable pulsatile abdominal masses, no auscultated abdominal bruit : No CVAT Extremities: No edema Neuro: alert and oriented x3, neuro exam at baseline, cranial nerves II through XII are intact. No pain with extraocular muscle movement. There is negative test of skew. Normal speech. 5 of 5 strength in upper and lower extremities in flexion extension. Intact sensation to light touch in upper and lower extremity dermatomes. No truncal or extremity ataxia. No dysdiadochokinesia. Normal gait. 2+ reflexes. No meningeal signs. Negative Babinski. NIH of 0. Skin: No rash or lesions noted MDM/plan: Chief Complaint: Headache External records reviewed: No recent advanced imaging of the brain I considered the following differential diagnosis: ICH, mass, migraine Patient's neurologic exam was intact. Will obtain CT scan to rule out obvious evidence subarachnoid hemorrhage. The patient was is within 12 hours of symptom onset Noncon CT is highly sensitive. CT scan was negative. Patient reports symptomatic improvement. Repeat neurologic exam remained intact and benign he is appropriate for discharge home is likely suffering from primary headache. Factors affecting care: History of polycystic kidney disease Social determinants of health: Never smoker History obtained from others: The patient's significant other Shared decision making: I will have a discussion with the patient and or visitors regarding risk/benefits of further testing or admission. They will be made aware of of the risk/benefits inherent in this decision they will be given the opportunity t o voice understanding. Consults: None Discharge Plan Triage Chief Complaint: Headache ED Midlevel Provider: Damaris Bender ED Provider: Yg Hernandez Dx/Rx/DC Orders Clinical Impression: Headache Instructions: Understanding Headache Pain Prescriptions: No Action NK Primary Care Provider: Matthias Abarca Referrals: Matthias Abarca DO [Primary Care Provider] - Activity Restrictions/Additional Instructions: CT scan of your brain today looked normal. Please take Tylenol or ibuprofen as needed and follow-up with your primary care doctor. If you develop a severe headache or worsening symptoms come back to the ER. Disposition Disposition: Home, Self Care Discharge Date/Time: 12/10/22 21:11
--- NOTE | 2022-12-10 19:49 | CT_ITS ---
INDICATION: Headache. EXAMINATION: CT Head or Brain W/O Contrast Injection TECHNIQUE: Multiple axial images were obtained of the head without intravenous contrast. A radiation dose optimization technique was used for this scan. IV Contrast dosage and agent: None. COMPARISON: None. FINDINGS: BRAIN PARENCHYMA: No intra- or extra-axial hemorrhage. No evidence of acute infarct. No intracranial mass or mass effect. No vasogenic edema. There is preservation of the love/white matter interface. Posterior fossa structures are unremarkable. CSF SPACES: Appropriate for age. No hydrocephalus. Basal cisterns are patent. No abnormal extra-axial fluid collection. CALVARIUM, SKULL BASE, PARANASAL SINUSES AND MASTOID AIR CELLS: Clear. No discrete lytic or blastic abnormalities. Calvarium is intact. ORBITS: Both globes, extraocular muscles, optic nerves and retrobulbar fat appear unremarkable. ASPECTS Score for Acute Strokes: 10 CT/Brain/Head without Contrast IMPRESSION: No acute intracranial findings. Electronically Signed: Martin Welch MD at 20:41 EDT ,
[2022-12-10] MEDS: proCHLORPERazine 10 MG/2 ML Vial 5 MG IV (20:22)
[2022-12-10] MEDS: DiphenhydrAMINE 50 MG/ML Syringe 25 MG IV (20:22)
[2022-12-10] MEDS: 0.9% Normal Saline 1,000 ML 999 ML IV (20:22)
[2022-12-10] MEDS: Ketorolac 15 MG/ML Vial IV (20:58)
== END 2022-12-10 21:11 | disposition home or self-care (01) ==
PROVIDERS: Emergency Provider Emergency Medicine; PCP Student in an Organized Health Care Education/Training Program; Visit Provider Emergency Medicine
DX: R51.9 Headache, unspecified (principal); R11.2 Nausea with vomiting, unspecified
CPT/HCPCS: 70450; 96361; 96374; 96375; 99283; J7030; A4216

== ENCOUNTER 2022-12-31 07:50 | Outpatient (RCR) | payer OTHER, SELFPAY ==
[2022-11-22 02:08] VITALS: BMI 31.5
[2022-12-31 09:41] LABS: AST(SGOT) 21 U/L (15-37); Alanine Aminotransfer ALT/SGPT 46 U/L (16-61); Albumin, Serum 3.8 g/dL (3.2-5.0); Alkaline Phosphatase 57 U/L (45-117); Bilirubin, Direct 0.21 mg/dL (0.00-0.30); Globulin 3.6 g/dL (2.2-4.2); Protein, Total 7.4 g/dL (6.4-8.2)
== END 2022-12-31 18:00 | disposition home or self-care (01) ==
LOC: LAB 07:50
PROVIDERS: PCP Student in an Organized Health Care Education/Training Program; Referring Provider Pediatrics Pediatric Nephrology; Visit Provider Pediatrics Pediatric Nephrology
DX: Z00.00 Encounter for general adult medical examination without abnormal findings (principal); Q61.2 Polycystic kidney, adult type; N18.2 Chronic kidney disease, stage 2 (mild); E55.9 Vitamin D deficiency, unspecified; Z13.220 Encounter for screening for lipoid disorders; Z13.1 Encounter for screening for diabetes mellitus
CPT/HCPCS: 36415; 80076

== ENCOUNTER 2023-02-04 11:36 | Outpatient (RCR) | payer OTHER, MEDICAID, SELFPAY ==
[2023-01-22 22:39] VITALS: BMI 31.5
[2023-02-04 12:46] LABS: AST(SGOT) 25 U/L (15-37); Alanine Aminotransfer ALT/SGPT 61 U/L (16-61); Albumin, Serum 3.7 g/dL (3.2-5.0); Alkaline Phosphatase 56 U/L (45-117); Bilirubin, Direct 0.21 mg/dL (0.00-0.30); Globulin 3.7 g/dL (2.2-4.2); Protein, Total 7.4 g/dL (6.4-8.2)
== END 2023-02-22 18:00 | disposition home or self-care (01) ==
LOC: LAB 11:36
PROVIDERS: PCP Student in an Organized Health Care Education/Training Program; Referring Provider Pediatrics Pediatric Nephrology; Visit Provider Pediatrics Pediatric Nephrology
DX: Z00.00 Encounter for general adult medical examination without abnormal findings (principal); Q61.2 Polycystic kidney, adult type; Z13.220 Encounter for screening for lipoid disorders; Z13.1 Encounter for screening for diabetes mellitus
CPT/HCPCS: 36415; 80076

== ENCOUNTER 2023-03-04 12:24 | Outpatient (RCR) | payer OTHER, MEDICAID, SELFPAY ==
[2023-02-23 00:56] VITALS: BMI 31.5
[2023-03-04 13:34] LABS: AST(SGOT) 28 U/L (15-37); Alanine Aminotransfer ALT/SGPT 58 U/L (16-61); Albumin, Serum 3.7 g/dL (3.2-5.0); Alkaline Phosphatase 57 U/L (45-117); Bilirubin, Direct 0.19 mg/dL (0.00-0.30); Globulin 3.6 g/dL (2.2-4.2); Protein, Total 7.3 g/dL (6.4-8.2)
== END 2023-03-04 18:00 | disposition home or self-care (01) ==
LOC: LAB 12:24
PROVIDERS: PCP Student in an Organized Health Care Education/Training Program; Referring Provider Pediatrics Pediatric Nephrology; Visit Provider Pediatrics Pediatric Nephrology
DX: Q61.2 Polycystic kidney, adult type; E55.9 Vitamin D deficiency, unspecified
CPT/HCPCS: 36415; 80076

== ENCOUNTER 2023-04-03 09:38 | Outpatient (RCR) | payer OTHER, SELFPAY ==
[2023-03-25 23:17] VITALS: BMI 31.5
[2023-04-03 10:20] LABS: AST(SGOT) 29 U/L (15-37); Alanine Aminotransfer ALT/SGPT 78 U/L (16-61); Alkaline Phosphatase 61 U/L (45-117); Bilirubin, Direct 0.25 mg/dL (0.00-0.30); Globulin 3.6 g/dL (2.2-4.2); Protein, Total 7.6 g/dL (6.4-8.2)
== END 2023-04-03 18:00 | disposition home or self-care (01) ==
LOC: LAB 09:38
PROVIDERS: PCP Student in an Organized Health Care Education/Training Program; Referring Provider Pediatrics Pediatric Nephrology; Visit Provider Pediatrics Pediatric Nephrology
DX: Q61.2 Polycystic kidney, adult type; E55.9 Vitamin D deficiency, unspecified
CPT/HCPCS: 36415; 80076

== ENCOUNTER → 2023-04-05 | Outpatient (CLI) | payer OTHER, SELFPAY ==
[2023-04-05 09:39] LABS: Cholesterol 205 mg/dL (200); High Density Lipoprotein 31 mg/dL; Iron 72 ug/dL (65-175); Magnesium 2.1 mg/dL (1.6-2.6); Triglycerides 127 mg/dL; Very Low Density Lipoprotein 25 mg/dL (5-40)
== END | disposition home or self-care (01) ==
PROVIDERS: PCP Student in an Organized Health Care Education/Training Program; Referring Provider Student in an Organized Health Care Education/Training Program; Visit Provider Student in an Organized Health Care Education/Training Program
DX: Z00.00 Encounter for general adult medical examination without abnormal findings (principal); Z13.220 Encounter for screening for lipoid disorders; R25.2 Cramp and spasm; Q61.00 Congenital renal cyst, unspecified; R22.1 Localized swelling, mass and lump, neck
CPT/HCPCS: 36415; 80061; 83540; 83735

== ENCOUNTER 2023-05-19 15:26 | Outpatient (RCR) | payer OTHER, SELFPAY ==
[2023-04-25 04:09] VITALS: BMI 31.5
[2023-05-19 16:45] LABS: AST(SGOT) 29 U/L (15-37); Alanine Aminotransfer ALT/SGPT 64 U/L (16-61); Alkaline Phosphatase 57 U/L (45-117); Bilirubin, Direct 0.16 mg/dL (0.00-0.30); Globulin 3.5 g/dL (2.2-4.2); Protein, Total 7.5 g/dL (6.4-8.2)
== END 2023-05-19 18:00 | disposition home or self-care (01) ==
LOC: LAB 15:26
PROVIDERS: PCP Student in an Organized Health Care Education/Training Program; Referring Provider Pediatrics Pediatric Nephrology; Visit Provider Pediatrics Pediatric Nephrology
DX: Q61.2 Polycystic kidney, adult type; E55.9 Vitamin D deficiency, unspecified
CPT/HCPCS: 36415; 80076

== ENCOUNTER 2023-07-09 15:38 | Outpatient (RCR) | payer OTHER, SELFPAY ==
[2023-05-25 22:30] VITALS: BMI 31.5
[2023-07-09 16:41] LABS: AST(SGOT) 23 U/L (15-37); Alanine Aminotransfer ALT/SGPT 48 U/L (16-61); Albumin, Serum 4.1 g/dL (3.2-5.0); Alkaline Phosphatase 61 U/L (45-117); Bilirubin, Direct 0.16 mg/dL (0.00-0.30); Globulin 3.6 g/dL (2.2-4.2); Protein, Total 7.7 g/dL (6.4-8.2)
== END 2023-07-25 18:00 | disposition home or self-care (01) ==
LOC: LAB 15:38
PROVIDERS: PCP Student in an Organized Health Care Education/Training Program; Referring Provider Pediatrics Pediatric Nephrology; Visit Provider Pediatrics Pediatric Nephrology
DX: Q61.2 Polycystic kidney, adult type; E55.9 Vitamin D deficiency, unspecified
CPT/HCPCS: 36415; 80076

== ENCOUNTER 2023-09-08 15:34 | Outpatient (RCR) | payer OTHER, SELFPAY ==
[2023-07-25 21:38] VITALS: BMI 31.5
[2023-09-08 16:41] LABS: Microalbumin,Random Urine 13.9 mg/L (NO RANGE EST.); Microalbumin:Creatinine Ratio 32.6 mg/g CRE (<30 mg/g CRE)
[2023-09-08 17:03] LABS: AST(SGOT) 45 U/L (15-37); Alanine Aminotransfer ALT/SGPT 109 U/L (16-61); Albumin, Serum 4.1 g/dL (3.2-5.0); Alkaline Phosphatase 59 U/L (45-117); Anion Gap 3 (5-15); BUN 12 mg/dL (7-18); BUN/Creat Ratio 10.4 RATIO (10-20); Bilirubin, Direct 0.19 mg/dL (0.00-0.30); Calcium,Total 9.3 mg/dL (8.5-10.1); Chloride 108 mmol/L (98-107); Creatinine, Serum 1.15 mg/dL (0.70-1.30); EST Glomerular Filtration Rate 79 mL/min (>60); Est Glom Filt Rate - Afr Amer 96 mL/min (>60); Globulin 3.6 g/dL (2.2-4.2); Glucose 117 mg/dL (74-106); Potassium 3.7 mmol/L (3.5-5.1); Protein, Total 7.7 g/dL (6.4-8.2); Sodium Level 139 mmol/L (136-145)
== END 2023-09-23 18:00 | disposition home or self-care (01) ==
LOC: LAB 15:34
PROVIDERS: PCP Student in an Organized Health Care Education/Training Program; Referring Provider Pediatrics Pediatric Nephrology; Visit Provider Pediatrics Pediatric Nephrology
DX: Q61.2 Polycystic kidney, adult type; E55.9 Vitamin D deficiency, unspecified
CPT/HCPCS: 36415; 80048; 80076; 82043; 82570

== ENCOUNTER 2023-10-18 15:49 | Outpatient (RCR) | payer OTHER, SELFPAY ==
[2023-09-23 23:57] VITALS: BMI 31.5
[2023-10-18 17:05] LABS: AST(SGOT) 45 U/L (15-37); Alanine Aminotransfer ALT/SGPT 84 U/L (16-61); Alkaline Phosphatase 54 U/L (45-117); Globulin 3.6 g/dL (2.2-4.2); Protein, Total 7.6 g/dL (6.4-8.2)
== END 2023-10-24 01:05 | disposition home or self-care (01) ==
LOC: LAB 15:49
PROVIDERS: PCP Student in an Organized Health Care Education/Training Program; Referring Provider Pediatrics Pediatric Nephrology; Visit Provider Pediatrics Pediatric Nephrology
DX: E55.9 Vitamin D deficiency, unspecified; Q61.3 Polycystic kidney, unspecified; Q61.2 Polycystic kidney, adult type
CPT/HCPCS: 36415; 80048; 80076; 82306; 82570; 83970; 84100; 84156; 85027

== ENCOUNTER 2023-11-22 15:55 | Outpatient (RCR) | payer OTHER, SELFPAY ==
[2023-10-24 01:05] VITALS: BMI 31.5
[2023-11-22 17:17] LABS: AST(SGOT) 37 U/L (15-37); Alanine Aminotransfer ALT/SGPT 71 U/L (16-61); Albumin, Serum 3.9 g/dL (3.2-5.0); Alkaline Phosphatase 49 U/L (45-117); Bilirubin, Direct 0.13 mg/dL (0.00-0.30); Globulin 3.4 g/dL (2.2-4.2); Protein, Total 7.3 g/dL (6.4-8.2)
== END 2023-11-23 23:34 | disposition home or self-care (01) ==
LOC: LAB 15:55
PROVIDERS: PCP Student in an Organized Health Care Education/Training Program; Referring Provider Pediatrics Pediatric Nephrology; Visit Provider Pediatrics Pediatric Nephrology
DX: Q61.2 Polycystic kidney, adult type (principal); E55.9 Vitamin D deficiency, unspecified
CPT/HCPCS: 36415; 80076

== ENCOUNTER 2024-01-09 11:20 | Emergency (ER) | payer OTHER, SELFPAY ==
[2024-01-09 11:21] VITALS: BP 145/105; PULSE 100; RESP 18; TEMP 36.8; O2SAT 94; BMI 35.2
--- NOTE | 2024-01-09 11:30 | CT_ITS ---
EXAM: CT ABDOMEN AND PELVIS WITHOUT INTRAVENOUS CONTRAST CLINICAL INDICATION: Right flank pain. TECHNIQUE: Helically acquired images were obtained of the abdomen and pelvis without intravenous contrast. This CT exam was performed using one or more of the following dose reduction techniques: automated exposure control, adjustment of the mA and/or kV according to patient size, and/or use of iterative reconstruction technique. RADIATION DOSE: CTDIvol = 16.47 mGy, DLP = 934.07 mGy-cm COMPARISON: CT abdomen and pelvis report of 04/14/2011. Comparison CT images of the abdomen and pelvis were not submitted for comparison. FINDINGS: LOWER THORAX: Unremarkable. Lung bases are clear. No cardiomegaly. No significant pericardial effusion. ABDOMEN: LIVER: Unremarkable. Homogeneous. GALLBLADDER AND BILE DUCTS: Unremarkable. No calcified gallstones. No gallbladder distention or wall edema. No intra- or extrahepatic biliary ductal dilation. PANCREAS: Unremarkable. No focal cystic mass. SPLEEN: Unremarkable. Normal size without focal cystic or solid mass. ADRENALS: Unremarkable. No nodules. KIDNEYS AND URETERS: Innumerable cysts in both kidneys. Abnormal stranding of the right lower perirenal fat. Normal bilateral hydronephrosis. No obstructing stones in the kidneys, ureters and urinary bladder. STOMACH AND BOWEL: Small diverticula along the sigmoid colon without diverticulitis. No stomach or bowel distention. PELVIS: APPENDIX: Normal. BLADDER: Unremarkable. REPRODUCTIVE: Unremarkable as visualized. No mass. ABDOMEN and PELVIS: INTRAPERITONEAL SPACE: Unremarkable. No ascites or other fluid collection. No free air. BONES/JOINTS: Unremarkable. No suspicious lytic or blastic abnormality. SOFT TISSUES: Unremarkable. No discrete abdominal or pelvic wall hernia. VASCULATURE: Unremarkable. Abdominal aorta is non-dilated. LYMPH NODES: Unremarkable. No enlarged lymph nodes. CT/Abdomen/Pelvis without Cont IMPRESSION: 1. Innumerable cysts in both kidneys. Multicystic kidney disease versus polycystic kidney disease. 2. Abnormal stranding of the right lower perirenal fat without right hydronephrosis or obstructing stone. This may be secondary to recently passed stone. Please correlate with urinalysis. 3. Sigmoid diverticulosis without diverticulitis. Electronically Signed: Wai Diaz MD at 12:19 EDT ,
--- NOTE | 2024-01-09 11:32 | EDS_ITS ---
HPI <REED Prakash - Last Filed: 01/09/24 13:19> History of Present Illness Chief Complaint: Flank Pain Narrative Narrative: 29-year-old male with past medical history of hypertension, polycystic kidney disease developed pain in his right side yesterday while driving. Last night it started radiating to the right lower quadrant and groin. He has decreased appetite but no nausea or vomiting. No fever or chills. He has no urinary symptoms or bowel changes. PFSH <REED Prakash - Last Filed: 01/09/24 13:19> PFS Medical History Polycystic kidney disease Home Medications ?Medication ?Instructions ?Recorded ?Last Taken ?Type NK 01/23/19 Unknown History Allergy/AdvReac Type Severity Reaction Status Date / Time No Known Allergies Allergy Verified 01/09/24 11:21 Social History Smoking Status: Never smoker ROS <REED Prakash - Last Filed: 01/09/24 13:19> ROS ED ROS Narrative Constitutional: Negative for fever, chills, malaise. CVS: Negative for chest pain. Respiratory: Negative for shortness of breath, cough. GI: Positive for abdominal pain, nausea, vomiting. Negative for diarrhea, constipation, melena, hematochezia. : Negative for dysuria, hematuria or frequency. EXAM <REED Prakash - Last Filed: 01/09/24 13:19> Physical Exam Narrative Exam Narrative: CONST: Patient sitting in no acute distress. EYES: Normal inspection. NECK: Normal inspection. RESP: No respiratory distress, CTAB. CVS: Regular rate and rhythm, no murmur, no gallop. ABD: Soft with slight RLQ tenderness, no guarding or rebound, nondistended, no hepatosplenomegaly. Back: Normal inspection, no CVA tenderness. SKIN: Color normal, no rash, warm, dry, intact. EXTREMITIES: Normal appearance, no pedal edema. NEURO: Alert and answering questions appropriately. PSYCH: Normal affect. Const Vital Signs: 01/09/24 11:21 01/09/24 13:09 Temperature 98.3 F 98.1 F Temperature Source Temporal Pulse Rate 100 74 Respiratory Rate 18 12 Blood Pressure 145/105 H 132/78 H Blood Pressure Mean 118 96 Pulse Ox 94 100 Oxygen Delivery Method Room Air <Dr. Cyril Thurman DO - Last Filed: 01/09/24 15:54> Physical Exam Const Vital Signs: 01/09/24 11:21 01/09/24 13:09 Temperature 98.3 F 98.1 F Temperature Source Temporal Pulse Rate 100 74 Respiratory Rate 18 12 Blood Pressure 145/105 H 132/78 H Blood Pressure Mean 118 96 Pulse Ox 94 100 Oxygen Delivery Method Room Air MDM <REED Prakash - Last Filed: 01/09/24 13:19> [facility] MDM Narrative Medical decision making narrative: Differential: Polycystic kidney disease, musculoskeletal pain, pyelonephritis, kidney stone, UTI I have personally performed a face to face assessment of the patient and have reviewed the CHANTELL Note. I performed a substantive portion of the visit including all aspects of the following. My colon findings include: History is [patient presents with right-sided flank pain that started initially yesterday. Patient states that he was in the car when he had sudden onset of pain in his right side. Today more discomfort in the right lower abdomen radiating to his right testicle. Pain worse with movement and walking. He had no nausea or vomiting. He is never had pain like this before. He has history of polycystic kidneys. No history of kidney stones. He denies dysuria urgency or frequency. He denies hematuria.] Exam is [HEENT-PERRLA, EOMI. Cranial nerves II through XII grossly intact. TMs clear. Mucous membranes moist. No adenopathy. Cardiovascular-regular rate and rhythm without murmur or ectopy Lungs-clear to auscultation, chest wall stable without crepitus or subcu emphysema Abdomen-normoactive bowel sounds, soft. Patient with tenderness palpation of the right lower quadrant with mild guarding. There is no rebound, rigidity, or. Signs. No mass palpated. Extremities-intact ?4, normal range of motion, normal pulses, atraumatic] Medical Decison Making [patient presented with right flank pain and in the differential would be UTI versus possibly kidney stone. He does have history of polycystic kidneys. IV line established. He now anything for pain. CBC with differential white count 9.4 with hemoglobin 14.9 and platelet count of 247. Chemistries were unremarkable. LFTs were normal. Urinalysis was normal. CT flank showed polycystic kidneys and some stranding around the kidney which may represent possibly a passed stone recently. There was some density differences in the right kidney I was concerned about possibility of a hemorrhage there and therefore we discussed case with the radiologist who does not believe that there is any evidence of hemorrhage on the scan. At this point patient will be discharged home and advised to follow-up with his urologist. It is possible he may have passed a kidney stone.] Other additions or changes: [None] Lab Data Labs: Laboratory Results - last 24 hr 01/09/24 01/09/24 11:35 11:37 WBC 9.4 RBC 5.24 Hgb 14.9 Hct 45.7 MCV 87.2 MCH 28.4 MCHC 32.6 RDW Std Deviation 41.4 RDW Coeff of Richard 13.1 Plt Count 247 MPV 9.6 Immature Gran % (Auto) 0.300 Neut % (Auto) 59.1 Lymph % (Auto) 26.4 [place] % (Auto) 13.1 H Eos % (Auto) 0.6 Baso % (Auto) 0.5 Absolute Neuts (auto) 5.5 Absolute Lymphs (auto) 2.47 Nucleated RBC % 0 Sodium 138 Potassium 3.8 Chloride 107 Carbon Dioxide 25.0 Anion Gap 6 BUN 12 Creatinine 1.14 Estim Creat Clear Calc 117.20 Est GFR (MDRD) Af Amer 96 Est GFR (MDRD) Non-Af 80 BUN/Creatinine Ratio 10.5 Glucose 98 Calcium 9.4 Total Bilirubin 1.80 H AST 19 ALT 38 Alkaline Phosphatase 62 Total Protein 7.8 Albumin 4.0 Globulin 3.8 Albumin/Globulin Ratio 1.1 Urine Color Yellow Urine Clarity Clear Urine pH 7.0 Ur Specific [place] 1.005 Urine Protein Negative Urine Glucose (UA) Normal Urine Ketones Negative Urine Occult Blood Negative Urine Nitrite Negative Urine Bilirubin Negative Urine Urobilinogen Normal Ur Leukocyte Esterase Negative Urine RBC 0 SEEN Urine WBC 0 SEEN Ur Squamous Epith Cells 0 SEEN Urine Bacteria 0 SEEN Urine Mucus 0 SEEN Radiography Diagnostic Testing: Clinical Impression(s) from Imaging Studies Abdomen/Pelvis CT 01/09/24 11:30 IMPRESSION: 1. Innumerable cysts in both kidneys. Multicystic kidney disease versus polycystic kidney disease. 2. Abnormal stranding of the right lower perirenal fat without right hydronephrosis or obstructing stone. This may be secondary to recently passed stone. Please correlate with urinalysis. 3. Sigmoid diverticulosis without diverticulitis. Electronically Signed: Wai Diaz MD at 12:19 EDT , <Dr. Cyril Thurman, DO - Last Filed: 01/09/24 15:54> [facility] Narrative Medical decision making narrative: I have personally performed a face to face assessment of the patient and have reviewed the CHANTELL Note. I performed a substantive portion of the visit including all aspects of the following. My colon findings include: History is [patient presents with right-sided flank pain that started initially yesterday. Patient states that he was in the car when he had sudden onset of pain in his right side. Today more discomfort in the right lower abdomen radiating to his right testicle. Pain worse with movement and walking. He had no nausea or vomiting. He is never had pain like this before. He has history of polycystic kidneys. No history of kidney stones. He denies dysuria urgency or frequency. He denies hematuria.] Exam is [HEENT-PERRLA, EOMI. Cranial nerves II through XII grossly intact. TMs clear. Mucous membranes moist. No adenopathy. Cardiovascular-regular rate and rhythm without murmur or ectopy Lungs-clear to auscultation, chest wall stable without crepitus or subcu emphysema Abdomen-normoactive bowel sounds, soft. Patient with tenderness palpation of the right lower quadrant with mild guarding. There is no rebound, rigidity, or. Signs. No mass palpated. Extremities-intact ?4, normal range of motion, normal pulses, atraumatic] Medical Decison Making [patient presented with right flank pain and in the differential would be UTI versus possibly kidney stone. He does have history of polycystic kidneys. IV line established. He now anything for pain. CBC with differential white count 9.4 with hemoglobin 14.9 and platelet count of 247. Chemistries were unremarkable. LFTs were normal. Urinalysis was normal. CT flank showed polycystic kidneys and some stranding around the kidney which may represent possibly a passed stone recently. There was some density differences in the right kidney I was concerned about possibility of a hemorrhage there and therefore we discussed case with the radiologist who does not believe that there is any evidence of hemorrhage on the scan. At this point patient will be discharged home and advised to follow-up with his urologist. It is possible he may have passed a kidney stone.] Other additions or changes: [None] Lab Data Attestation: I reviewed the patient's lab results. Labs: Laboratory Results - last 24 hr 01/09/24 01/09/24 11:35 11:37 WBC 9.4 RBC 5.24 Hgb 14.9 Hct 45.7 MCV 87.2 MCH 28.4 MCHC 32.6 RDW Std Deviation 41.4 RDW Coeff of Richard 13.1 Plt Count 247 MPV 9.6 Immature Gran % (Auto) 0.300 Neut % (Auto) 59.1 Lymph % (Auto) 26.4 [place] % (Auto) 13.1 H Eos % (Auto) 0.6 Baso % (Auto) 0.5 Absolute Neuts (auto) 5.5 Absolute Lymphs (auto) 2.47 Nucleated RBC % 0 Sodium 138 Potassium 3.8 Chloride 107 Carbon Dioxide 25.0 Anion Gap 6 BUN 12 Creatinine 1.14 Estim Creat Clear Calc 117.20 Est GFR (MDRD) Af Amer 96 Est GFR (MDRD) Non-Af 80 BUN/Creatinine Ratio 10.5 Glucose 98 Calcium 9.4 Total Bilirubin 1.80 H AST 19 ALT 38 Alkaline Phosphatase 62 Total Protein 7.8 Albumin 4.0 Globulin 3.8 Albumin/Globulin Ratio 1.1 Urine Color Yellow Urine Clarity Clear Urine pH 7.0 Ur Specific [place] 1.005 Urine Protein Negative Urine Glucose (UA) Normal Urine Ketones Negative Urine Occult Blood Negative Urine Nitrite Negative Urine Bilirubin Negative Urine Urobilinogen Normal Ur Leukocyte Esterase Negative Urine RBC 0 SEEN Urine WBC 0 SEEN Ur Squamous Epith Cells 0 SEEN Urine Bacteria 0 SEEN Urine Mucus 0 SEEN Radiography Diagnostic Testing: Clinical Impression(s) from Imaging Studies Abdomen/Pelvis CT 01/09/24 11:30 IMPRESSION: 1. Innumerable cysts in both kidneys. Multicystic kidney disease versus polycystic kidney disease. 2. Abnormal stranding of the right lower perirenal fat without right hydronephrosis or obstructing stone. This may be secondary to recently passed stone. Please correlate with urinalysis. 3. Sigmoid diverticulosis without diverticulitis. Electronically Signed: Wai Diaz MD at 12:19 EDT , Discharge Plan Triage Chief Complaint: Flank Pain ED Midlevel Provider: Damaris Bender ED Provider: Cyril Thurman Dx/Rx/DC Orders Clinical Impression: Acute right flank pain, Polycystic kidney disease Instructions: ED Flank Pain, Uncertain Cause Prescriptions: No Action NK Primary Care Provider: Matthias Abarca Referrals: Matthias Abarca DO [Primary Care Provider] - Activity Restrictions/Additional Instructions: CT scan shows stranding around the right kidney without the stone. This could be from a recently passed stone. I recommend Tylenol as needed and follow-up with your software applications specialist/urologist. Return if symptoms worsen. Print Language: German Disposition Disposition: Home, Self Care Discharge Date/Time: 01/09/24 13:10
[2024-01-09 11:44] LABS: Absolute Lymphocyte Count 2.47 X10^3/uL (0.83-4.51); Absolute Neutrophil Count 5.5 X10^3/uL (2.0-7.7); Basophil# 0.05 X10^3/uL; Basophil% 0.5 % (0-1); Eosinophil# 0.06 X10^3/uL; Eosinophils% 0.6 % (0-5); Hematocrit 45.7 % (40-54); Hemoglobin 14.9 g/dL (13.0-16.5); Lymphocyte # 2.47 X10^3/ul (0.83-4.51); Lymphocyte % 26.4 % (19-41); Mean Corp Hgb Conc 32.6 g/dL (32-36); Mean Corpuscular Hgb 28.4 pg (27.0-32.0); Mean Corpuscular Volume 87.2 fL (80-94); Mean Platelet Vol. 9.6 fl (6.2-12.0); Monocyte# 1.23 X10^3/uL; Monocyte% 13.1 % (0-10); NRBC Flagged by Analyzer 0 % (0-5); Neutrophil # 5.52 X10^3/uL (2.7-7.7); Neutrophil % 59.1 % (47-70); Platelet Count 247 K/mm3 (150-450); RBC Distribution Width CV 13.1 % (11.6-14.6); RBC Distribution Width SD 41.4 fl (35.1-43.9); Red Blood Count 5.24 M/mm3 (4.6-6.2); White Blood Count 9.4 K/mm3 (4.4-11.0)
[2024-01-09 11:44] LABS: Bacteria 0 SEEN /hpf (None Seen); Mucous, Urine 0 SEEN /hpf (<or=2+); Red Blood Cells-Urine 0 SEEN /hpf (0-5); Squamous Epithelial Cells - UA 0 SEEN /hpf (0-5); White Blood Cells 0 SEEN /hpf (0-5)
[2024-01-09] MEDS: 0.9% Normal Saline (1000mL) 1,000 ML 999 ML IV (11:45)
[2024-01-09 11:53] LABS: Color, Urine Yellow (Yellow); Glucose, Dipstick Normal (Normal); Ketone-Dipstick Negative (Negative); Leukocyte Esterase-Dipstick Negative /ul (Negative); Nitrite-Dipstick Negative (Negative); Occult Blood-Urine Negative /ul (Negative); Protein-Dipstick Negative (Negative); Specific Gravity, Urine 1.005 (1.002-1.030); Urine Bilirubin Dipstick Negative (Negative); Urine Clarity Clear (Clear); Urine Urobilinogen Normal (Normal)
[2024-01-09 12:00] LABS: ALB/GLOB Ratio 1.1 RATIO (0.9-2.4); AST(SGOT) 19 U/L (15-37); Alanine Aminotransfer ALT/SGPT 38 U/L (16-61); Alkaline Phosphatase 62 U/L (45-117); Anion Gap 6 (5-15); BUN 12 mg/dL (7-18); BUN/Creat Ratio 10.5 RATIO (10-20); Calcium,Total 9.4 mg/dL (8.5-10.1); Chloride 107 mmol/L (98-107); Creatinine, Serum 1.14 mg/dL (0.70-1.30); EST Glomerular Filtration Rate 80 mL/min (>60); Est Glom Filt Rate - Afr Amer 96 mL/min (>60); Globulin 3.8 g/dL (2.2-4.2); Glucose 98 mg/dL (74-106); Potassium 3.8 mmol/L (3.5-5.1); Protein, Total 7.8 g/dL (6.4-8.2); Sodium Level 138 mmol/L (136-145)
[2024-01-09 13:09] VITALS: BP 132/78; PULSE 74; RESP 12; TEMP 36.7; O2SAT 100
== END 2024-01-09 13:10 | disposition home or self-care (01) ==
PROVIDERS: Physician Assistant; Emergency Provider Emergency Medicine; PCP Student in an Organized Health Care Education/Training Program; Visit Provider Emergency Medicine
DX: R10.31 Right lower quadrant pain (principal); Q61.3 Polycystic kidney, unspecified; I10 Essential (primary) hypertension; R11.2 Nausea with vomiting, unspecified
CPT/HCPCS: 74176; 80053; 81001; 85025; 96360; 99283; J7030; A4216

== ENCOUNTER → 2024-01-13 | Outpatient (CLI) | payer OTHER, SELFPAY ==
--- NOTE | 2024-01-13 14:41 | CT_ITS ---
STUDY: CT ABDOMEN AND PELVIS WITHOUT AND WITH CONTRAST REASON FOR EXAM: Male, 29 years old. RLQ PAIN/POLYCYSTIC KIDNEY DISEASE RADIATION DOSAGE (If Supplied By Facility): CTDIvol = ( 23.56 ) mGy, DLP = ( 3688.72 ) mGycm TECHNIQUE: IV 75mL Isovue-300 was administered. Transaxial images were obtained from the dome of the diaphragm to the symphysis pubis. Multiplanar coronal and sagittal images were reformatted. The protocol utilizes one or more of the following dose reduction techniques: automated exposure control, adjustment of mA and/or kV according to patient size,and/or use of iterative reconstruction technique. COMPARISON: FINDINGS: The visualized lung bases are unremarkable. The visualized portions of the heart are within normal limits. Normal liver. Normal gallbladder and extrahepatic biliary system. Normal spleen. Normal pancreas. Normal bilateral adrenal glands. Normal visualized stomach. Normal small intestine. Normal colon. The appendix is visualized and appears normal. Normal abdominal aorta. No retroperitoneal adenopathy. Polycystic kidneys. Persistent perinephric stranding along the lower pole of the right kidney with irregular-appearing hyperdensity of the lower renal cortex. The possibility of bleeding cannot be excluded. Normal urinary bladder. Normal abdominal wall. Normal osseous structures. CT/CT Abd/Pelvis W/WO Contrast IMPRESSION: Polycystic kidneys. Persistent perinephric stranding along the lower pole of the right kidney with irregular-appearing hyperdensity of the lower renal cortex. The possibility of bleeding cannot be excluded. Electronically Signed: Omar Walker DO at 17:12 EDT ,
[2024-01-13 15:30] LABS: Hematocrit 42.8 % (40-54); Hemoglobin 13.9 g/dL (13.0-16.5); Mean Corp Hgb Conc 32.5 g/dL (32-36); Mean Corpuscular Hgb 28.4 pg (27.0-32.0); Mean Corpuscular Volume 87.5 fL (80-94); Mean Platelet Vol. 9.9 fl (6.2-12.0); Platelet Count 335 K/mm3 (150-450); RBC Distribution Width CV 12.4 % (11.6-14.6); RBC Distribution Width SD 39.9 fl (35.1-43.9); Red Blood Count 4.89 M/mm3 (4.6-6.2)
[2024-01-13 15:38] LABS: Glucose, Dipstick Normal (Normal); Ketone-Dipstick Negative (Negative); Leukocyte Esterase-Dipstick Negative /ul (Negative); Nitrite-Dipstick Negative (Negative); Occult Blood-Urine Negative /ul (Negative); Protein-Dipstick Negative (Negative); Urine Bilirubin Dipstick Negative (Negative); Urine Urobilinogen Normal (Normal); Urine pH 6.5 (5.0 - 8.0)
[2024-01-13 15:44] LABS: Color, Urine Straw (Yellow); Urine Clarity Clear (Clear)
[2024-01-13 15:53] LABS: PTHIN 42.7 pg/mL (18.4-80.1)
[2024-01-13 15:57] LABS: Vitamin D,25 Hydroxy 40.3 ng/mL
[2024-01-13 15:58] LABS: AST(SGOT) 23 U/L (15-37); Alanine Aminotransfer ALT/SGPT 43 U/L (16-61); Albumin, Serum 3.7 g/dL (3.2-5.0); Alkaline Phosphatase 66 U/L (45-117); Anion Gap 6 (5-15); BUN 11 mg/dL (7-18); BUN/Creat Ratio 9.7 RATIO (10-20); Bilirubin, Direct 0.13 mg/dL (0.00-0.30); Calcium,Total 9.4 mg/dL (8.5-10.1); Chloride 105 mmol/L (98-107); Creatinine, Serum 1.13 mg/dL (0.70-1.30); EST Glomerular Filtration Rate 80 mL/min (>60); Est Glom Filt Rate - Afr Amer 97 mL/min (>60); Globulin 4.1 g/dL (2.2-4.2); Glucose 104 mg/dL (74-106); Phosphorus 3.7 mg/dL (2.5-4.9); Potassium 3.7 mmol/L (3.5-5.1); Protein, Total 7.8 g/dL (6.4-8.2); Sodium Level 139 mmol/L (136-145)
[2024-01-13 16:29] LABS: Protein, Urine (Random) < 6.0 mg/dL (<11.9)
== END | disposition home or self-care (01) ==
LOC: CT 14:39
PROVIDERS: PCP Student in an Organized Health Care Education/Training Program; Referring Provider Student in an Organized Health Care Education/Training Program; Visit Provider Student in an Organized Health Care Education/Training Program
DX: R10.31 Right lower quadrant pain (principal); Q61.00 Congenital renal cyst, unspecified
CPT/HCPCS: 36415; 74178; 80048; 80076; 81002; 82306; 82570; 83970; 84100; 84156; 85027; 87086; Q9967

== ENCOUNTER 2024-02-22 13:10 | Outpatient (RCR) | payer OTHER, SELFPAY ==
[2023-11-23 23:35] VITALS: BMI 31.5
[2024-02-22 14:02] LABS: AST(SGOT) 28 U/L (15-37); Alanine Aminotransfer ALT/SGPT 56 U/L (16-61); Albumin, Serum 4.1 g/dL (3.2-5.0); Alkaline Phosphatase 58 U/L (45-117); Bilirubin, Direct 0.23 mg/dL (0.00-0.30); Globulin 3.4 g/dL (2.2-4.2); Protein, Total 7.5 g/dL (6.4-8.2)
== END 2024-02-23 18:00 | disposition home or self-care (01) ==
LOC: LAB 13:10
PROVIDERS: PCP Student in an Organized Health Care Education/Training Program; Referring Provider Pediatrics Pediatric Nephrology; Visit Provider Pediatrics Pediatric Nephrology
DX: Q61.2 Polycystic kidney, adult type (principal); E55.9 Vitamin D deficiency, unspecified; Q61.3 Polycystic kidney, unspecified
CPT/HCPCS: 36415; 80076

== ENCOUNTER 2024-03-17 15:22 | Outpatient (RCR) | payer OTHER, SELFPAY ==
[2024-02-23 22:16] VITALS: BMI 31.5
[2024-03-17 16:29] LABS: AST(SGOT) 21 U/L (15-37); Alanine Aminotransfer ALT/SGPT 46 U/L (16-61); Albumin, Serum 3.8 g/dL (3.2-5.0); Alkaline Phosphatase 65 U/L (45-117); Bilirubin, Direct 0.18 mg/dL (0.00-0.30); Globulin 3.5 g/dL (2.2-4.2); Protein, Total 7.3 g/dL (6.4-8.2)
== END 2024-03-17 18:00 | disposition home or self-care (01) ==
LOC: LAB 15:22
PROVIDERS: PCP Student in an Organized Health Care Education/Training Program; Referring Provider Pediatrics Pediatric Nephrology; Visit Provider Pediatrics Pediatric Nephrology
DX: E55.9 Vitamin D deficiency, unspecified; Q61.3 Polycystic kidney, unspecified; Q61.2 Polycystic kidney, adult type
CPT/HCPCS: 36415; 80076

== ENCOUNTER 2024-05-05 16:14 | Outpatient (RCR) | payer OTHER, SELFPAY ==
[2024-03-26 04:37] VITALS: BMI 31.5
[2024-05-05 16:47] LABS: Hemoglobin 14.1 g/dL (13.0-16.5); Mean Corp Hgb Conc 32.8 g/dL (32-36); Mean Corpuscular Hgb 28.7 pg (27.0-32.0); Mean Corpuscular Volume 87.4 fL (80-94); Mean Platelet Vol. 9.8 fl (6.2-12.0); Platelet Count 262 K/mm3 (150-450); RBC Distribution Width CV 13.3 % (11.6-14.6); RBC Distribution Width SD 42.5 fl (35.1-43.9); Red Blood Count 4.92 M/mm3 (4.6-6.2); White Blood Count 6.6 K/mm3 (4.4-11.0)
[2024-05-05 17:19] LABS: Microalbumin,Random Urine 8.8 mg/L (NO RANGE EST.); Microalbumin:Creatinine Ratio 35.3 mg/g CRE (<30 mg/g CRE); Protein, Urine (Random) < 6.0 mg/dL (<11.9)
[2024-05-05 17:48] LABS: PTHIN 47.4 pg/mL (18.4-80.1)
[2024-05-05 17:51] LABS: AST(SGOT) 36 U/L (15-37); Alanine Aminotransfer ALT/SGPT 61 U/L (16-61); Albumin, Serum 4.1 g/dL (3.2-5.0); Alkaline Phosphatase 60 U/L (45-117); Anion Gap 5 (5-15); BUN 13 mg/dL (7-18); Bilirubin, Direct 0.14 mg/dL (0.00-0.30); Calcium,Total 9.1 mg/dL (8.5-10.1); Chloride 106 mmol/L (98-107); Creatinine, Serum 1.18 mg/dL (0.70-1.30); EST Glomerular Filtration Rate 76 mL/min (>60); Est Glom Filt Rate - Afr Amer 92 mL/min (>60); Globulin 3.5 g/dL (2.2-4.2); Glucose 101 mg/dL (74-106); Phosphorus 3.4 mg/dL (2.5-4.9); Potassium 3.9 mmol/L (3.5-5.1); Protein, Total 7.6 g/dL (6.4-8.2); Sodium Level 138 mmol/L (136-145)
[2024-05-05 17:53] LABS: Vitamin D,25 Hydroxy 85.5 ng/mL
== END 2024-05-05 18:00 | disposition home or self-care (01) ==
LOC: LAB 16:14
PROVIDERS: PCP Student in an Organized Health Care Education/Training Program; Referring Provider Pediatrics Pediatric Nephrology; Visit Provider Pediatrics Pediatric Nephrology
DX: Q61.2 Polycystic kidney, adult type (principal); Q61.3 Polycystic kidney, unspecified
CPT/HCPCS: 36415; 80048; 80076; 82043; 82306; 82570; 83970; 84100; 84156; 85027

== ENCOUNTER → 2024-05-09 | Outpatient (CLI) | payer OTHER, SELFPAY ==
--- NOTE | 2024-05-09 14:59 | US_ITS ---
HISTORY: AUTOSOMAL DOMINANT POLYCYSTIC KIDNEY DISEASE. TECHNIQUE: More scale and color doppler images were obtained of the kidneys. 92 images. COMPARISON: CT 01/13/2024. FINDINGS: RIGHT KIDNEY: 20.2 cm in length. Cortical thickness 2.3 cm. No hydronephrosis. Numerous cysts measuring up to 5 cm, some septated. LEFT KIDNEY: 16.5 cm in length. Cortical thickness 1.4 cm. No hydronephrosis. Numerous cysts measuring up to 5.1 cm. URINARY BLADDER: Distended at 1031 cc with a 4 mm wall thickness. Bilateral ureteral jets visualized. US/Kidney and Bladder IMPRESSION: Polycystic kidney disease. Electronically Signed: Mary Kay Mccarty MD at 10:38 EDT ,
== END | disposition home or self-care (01) ==
PROVIDERS: PCP Student in an Organized Health Care Education/Training Program; Referring Provider Pediatrics Pediatric Nephrology; Visit Provider Pediatrics Pediatric Nephrology
DX: Q61.2 Polycystic kidney, adult type (principal)
CPT/HCPCS: 76770

== ENCOUNTER 2024-06-12 15:23 | Outpatient (RCR) | payer OTHER, SELFPAY ==
[2024-05-25 20:45] VITALS: BMI 31.5
[2024-06-12 17:07] LABS: AST(SGOT) 22 U/L (15-37); Alanine Aminotransfer ALT/SGPT 40 U/L (16-61); Albumin, Serum 3.9 g/dL (3.2-5.0); Alkaline Phosphatase 50 U/L (45-117); Bilirubin, Direct 0.13 mg/dL (0.00-0.30); Globulin 3.3 g/dL (2.2-4.2); Protein, Total 7.2 g/dL (6.4-8.2)
== END 2024-06-24 18:00 | disposition home or self-care (01) ==
LOC: LAB 15:23
PROVIDERS: PCP Student in an Organized Health Care Education/Training Program; Referring Provider Pediatrics Pediatric Nephrology; Visit Provider Pediatrics Pediatric Nephrology
DX: Q61.2 Polycystic kidney, adult type
CPT/HCPCS: 36415; 80076

== ENCOUNTER 2024-08-04 15:09 | Outpatient (RCR) | payer OTHER, SELFPAY ==
[2024-06-25] VITALS: BMI 31.5
[2024-08-04 16:14] LABS: AST(SGOT) 21 U/L (15-37); Alanine Aminotransfer ALT/SGPT 54 U/L (16-61); Albumin, Serum 3.9 g/dL (3.2-5.0); Alkaline Phosphatase 54 U/L (45-117); Bilirubin, Direct 0.18 mg/dL (0.00-0.30); Globulin 3.4 g/dL (2.2-4.2); Protein, Total 7.3 g/dL (6.4-8.2)
== END 2024-08-04 18:00 | disposition home or self-care (01) ==
LOC: LAB 15:09
PROVIDERS: PCP Student in an Organized Health Care Education/Training Program; Referring Provider Pediatrics Pediatric Nephrology; Visit Provider Pediatrics Pediatric Nephrology
DX: Q61.2 Polycystic kidney, adult type (principal); E55.9 Vitamin D deficiency, unspecified
CPT/HCPCS: 36415; 80076

== ENCOUNTER 2024-09-08 07:55 | Outpatient (RCR) | payer OTHER, SELFPAY ==
[2024-08-26 02:54] VITALS: BMI 31.5
[2024-09-08 09:18] LABS: AST(SGOT) 22 U/L (15-37); Alanine Aminotransfer ALT/SGPT 46 U/L (16-61); Albumin, Serum 3.8 g/dL (3.2-5.0); Alkaline Phosphatase 50 U/L (45-117); Bilirubin, Direct 0.17 mg/dL (0.00-0.30); Cholesterol 183 mg/dL (200); Globulin 3.6 g/dL (2.2-4.2); High Density Lipoprotein 34 mg/dL; Protein, Total 7.4 g/dL (6.4-8.2); Triglycerides 108 mg/dL; Very Low Density Lipoprotein 22 mg/dL (5-40)
[2024-09-12 11:08] LABS: H. PYLORI STOOL AG Negative (Negative)
== END 2024-09-22 18:00 | disposition home or self-care (01) ==
LOC: LAB 07:55
PROVIDERS: PCP Student in an Organized Health Care Education/Training Program; Referring Provider Pediatrics Pediatric Nephrology; Visit Provider Pediatrics Pediatric Nephrology
DX: Q61.2 Polycystic kidney, adult type (principal); E55.9 Vitamin D deficiency, unspecified
CPT/HCPCS: 36415; 80061; 80076; 82043; 82570; 84156; 87338

== ENCOUNTER 2024-10-20 10:47 | Outpatient (RCR) | payer OTHER, SELFPAY ==
[2024-09-23 05:08] VITALS: BMI 31.5
[2024-10-20 11:51] LABS: AST(SGOT) 22 U/L (<=37); Alanine Aminotransfer ALT/SGPT 40 U/L (<=46); Albumin, Serum 4.6 g/dL (3.5-5.0); Alkaline Phosphatase 52 U/L (40-129); Bilirubin, Direct 0.36 mg/dL (0.00-0.30); Globulin 2.7 g/dL (2.2-4.2); Protein, Total 7.3 g/dL (5.9-8.4); Total Bilirubin 1.03 mg/dL (0.00-1.30)
== END 2024-10-20 18:00 | disposition home or self-care (01) ==
LOC: LAB 10:47
PROVIDERS: PCP Student in an Organized Health Care Education/Training Program; Referring Provider Pediatrics Pediatric Nephrology; Visit Provider Pediatrics Pediatric Nephrology
DX: Q61.2 Polycystic kidney, adult type (principal)
CPT/HCPCS: 36415; 80076

== ENCOUNTER 2024-12-08 12:16 | Outpatient (RCR) | payer OTHER, SELFPAY ==
[2024-10-23 22:34] VITALS: BMI 31.5
[2024-12-08 12:46] LABS: Hematocrit 43.8 % (40-54); Hemoglobin 14.6 g/dL (13.0-16.5); Mean Corp Hgb Conc 33.3 g/dL (32-36); Mean Corpuscular Hgb 29.1 pg (27.0-32.0); Mean Corpuscular Volume 87.4 fL (80-94); Mean Platelet Vol. 9.4 fl (6.2-12.0); Platelet Count 275 K/mm3 (150-450); RBC Distribution Width CV 13.3 % (11.6-14.6); RBC Distribution Width SD 42.6 fl (35.1-43.9); Red Blood Count 5.01 M/mm3 (4.6-6.2); White Blood Count 6.4 K/mm3 (4.4-11.0)
[2024-12-08 13:22] LABS: Protein, Urine (Random) 7.7 mg/dL (0.0-12.0); Protein:Creat Ratio 165 mg/g CRE (0-200)
[2024-12-08 13:23] LABS: PTHIN 26 pg/mL (11-61)
[2024-12-08 13:38] LABS: AST(SGOT) 26 U/L (<=37); Alanine Aminotransfer ALT/SGPT 37 U/L (<=46); Albumin, Serum 4.7 g/dL (3.5-5.0); Alkaline Phosphatase 54 U/L (40-129); Anion Gap 10 (5-15); BUN 13 mg/dL (4-19); BUN/Creat Ratio 11.9 RATIO (10-20); Bilirubin, Direct 0.27 mg/dL (0.00-0.30); Calcium,Total 10.1 mg/dL (7.6-11.0); Carbon Dioxide 25.8 mmol/L (21.0-32.0); Chloride 106 mmol/L (98-108); Creatinine, Serum 1.06 mg/dL (0.70-1.20); EST Glomerular Filtration Rate 96 (>60); Globulin 2.9 g/dL (2.2-4.2); Glucose 70 mg/dL (70-99); Phosphorus 3.6 mg/dL (2.7-4.5); Potassium 4.2 mmol/L (3.3-5.1); Protein, Total 7.6 g/dL (5.9-8.4); Sodium Level 141 mmol/L (133-145); Total Bilirubin 0.82 mg/dL (0.00-1.30)
== END 2024-12-08 18:00 | disposition home or self-care (01) ==
LOC: LAB 12:16
PROVIDERS: PCP Student in an Organized Health Care Education/Training Program; Referring Provider Pediatrics Pediatric Nephrology; Visit Provider Pediatrics Pediatric Nephrology
DX: Q61.2 Polycystic kidney, adult type (principal); E55.9 Vitamin D deficiency, unspecified; Q61.3 Polycystic kidney, unspecified
CPT/HCPCS: 36415; 80048; 80076; 82306; 82570; 83970; 84100; 84156; 85027

== ENCOUNTER 2025-04-04 18:54 | Emergency (ER) | payer OTHER, SELFPAY ==
[2025-04-04 18:55] VITALS: BP 149/94; PULSE 57; RESP 16; TEMP 36.3; O2SAT 99; BMI 37.8
--- NOTE | 2025-04-04 19:45 | EDS_ITS ---
HPI History of Present Illness Chief Complaint: Eye Problem Detail of Chief Complaint: Laceration left upper eyelid Informant: patient Narrative Narrative: Patient presents to the emergency department for laceration of the left upper eyelid sustained about an hour ago. Patient states that he bent over to play with his son and struck the corner of a chair with his left eye. Denies any vision changes. Unsure of his last tetanus shot [facility] Medical History Polycystic kidney disease Home Medications ?Medication ?Instructions ?Recorded ?Last Taken ?Type NK 01/23/19 Unknown History Allergy/AdvReac Type Severity Reaction Status Date / Time No Known Allergies Allergy Verified 04/04/25 18:56 Social History Smoking Status: Never smoker ROS ROS ED Review of Systems ROS Unobtainable: other Constitutional Constitutional ED: Reports lethargy; Denies chills, fever(s), sweats or weight loss Eyes Eyes: Denies blurry vision, change in vision or diplopia ENT ENT ED: Denies rhinorrhea or sore throat Cardiovascular Cardiovascular: Denies chest pain, orthopnea or racing heartbeat Respiratory/Chest Respiratory/Chest: Denies cough, dyspnea, dyspnea on exertion, orthopnea or sputum Gastrointestinal Gastrointestinal: Denies abdominal pain, diarrhea, nausea or vomiting Genitourinary Genitourinary ED: Denies dysuria, hematuria or urinary frequency Musculoskeletal Musculoskeletal: Denies arthralgias, back pain, myalgias or neck pain Integumentary Reports other Details: Laceration left upper eyelid ; Denies abscess, Abrasions or rash Neurologic Neurologic: Denies headache(s) or weakness Psychiatric Psychiatric: Denies anxiety, depression or suicidal thoughts Endocrine Endocrinology: Denies polydipsia, polyphagia or polyuria Hematologic/Lymphatic Hematologic/Lymphatic: Denies easy bleeding, easy bruising or lymphadenopathy Allergic/Immunologic Allergic/Immunologic ED: Denies mouth swelling, tongue swelling or urticaria EXAM Physical Exam Const Vital Signs: 04/04/25 18:55 Temperature 97.3 F L Temperature Source Temporal Pulse Rate 57 L Respiratory Rate 16 Blood Pressure 149/94 H Blood Pressure Mean 112 Pulse Ox 99 Oxygen Delivery Method Room Air Positive well nourished and well developed General Appearance ED: well developed and NAD HEENT Reports TM's clear and moist mucous membranes normocephalic and atraumatic; Negative for trauma or tenderness Tympanic Membrane ED: Yes TM's clear Eyes PERRL and EOMs intact bilaterally Eyes Narrative: 2 cm laceration left upper eyelid well-approximated without any active bleeding currently. Able to normally elevate his eyelid. No evidence of trauma to the globe. No vision changes General Eye ED: Negative for pale conjunctiva or scleral icterus Neck no lymphadenopathy, supple and no JVD General: Negative for tenderness Chest Wall inspection of chest normal and palpation of chest normal Chest: Negative for tenderness Resp normal respiratory effort and clear to auscultation bilaterally Effort and Inspection: Negative for respiratory distress or pain with movement Auscultation: Negative for rhonchi, wheezes or diminished lung sounds Cardio regular rate, regular rhythm, S1 normal heart sound, S2 normal heart sound and no murmurs Peripheral Pulses: pulses 2+ throughout GI normal to inspection, nondistended, normoactive bowel sounds, soft to palpation, non-tender, non-distended and no masses Back/Spine no CVA tenderness and no thoracic nor lumbar tenderness Extremity normal to inspection General Extremety ED: Negative for edema General Extremity: Negative for edema Neuro oriented x3, CN's II-XII intact bilaterally, no sensory deficits noted and gait normal Sensorium / Orientation: awake, alert, oriented to person, oriented to place and oriented to time Motor Exam: strength 5/5 throughout and strength abnormal Psych mental status grossly normal Skin no rashes or lesions noted and no wounds MDM MDM MDM Narrative Medical decision making narrative: Patient with a 2 cm laceration over the left upper eyelid that is linear and well-approximated. No trauma to the orbit or globe. Wound was thoroughly cleansed and dried. I was able to use Dermabond glue to approximate the wound edges and patient Toller procedure well. Will give tetanus booster. Advised return if increasing pain, redness, swelling, purulent drainage, or condition worsen anyway Discharge Plan Triage Chief Complaint: Eye Problem ED Provider: Cyril Thurman Dx/Rx/DC Orders Clinical Impression: Eyelid laceration Instructions: ED Laceration, Face: Skin Glue Prescriptions: No Action NK Primary Care Provider: Matthias Abarca Referrals: Matthias Abarca DO [Primary Care Provider] - As Needed Print Language: Lao Disposition Disposition: Home, Self Care
[2025-04-04 20:21] VITALS: BP 140/62; PULSE 57; RESP 18; TEMP 36.7; O2SAT 97
== END 2025-04-04 20:21 | disposition home or self-care (01) ==
PROVIDERS: Emergency Provider Emergency Medicine; PCP Student in an Organized Health Care Education/Training Program; Visit Provider Emergency Medicine
DX: S01.112A Laceration without foreign body of left eyelid and periocular area, initial encounter (principal); Z23 Encounter for immunization; X58.XXXA Exposure to other specified factors, initial encounter
CPT/HCPCS: 12011; 90471; 90715; 99282